=== PATIENT | male | born 1965 | race African-American/Black ===

== ENCOUNTER 2019-09-07 21:09 | Inpatient (IN) | payer OTHER ==
[2019-09-07 21:29] LABS: Arterial Blood Carboxyhemoglob 1.1 % (0-1.5); Blood Gas Oxyhemoglobin 96.5 % (94-97); Blood O2 Saturation 98.1 % (92-98.5)
[2019-09-07] MEDS ORDERED: NA CHLORIDE 0.9% 1,000 ML ONE (21:44)
[2019-09-07] MEDS ORDERED: ACETAMINOPHEN 650MG/RECT SUPP PR ONE (21:44)
[2019-09-07] MEDS ORDERED: NA CHLORIDE 0.9% 500 ML ONE (21:44)
[2019-09-07 21:50] LABS: Absolute Lymphocytes (CBC) 1.3 K/uL (0.7-4.9); Basophils % 0.5 % (0-1.3); Hematocrit 31.3 % (39.6-49.0); MPV 8.3 fL (7.6-11.3)
[2019-09-07 21:54] LABS: Protime INR 1.49
[2019-09-07 21:56] LABS: ALT/SGPT 131 U/L (12-78); AST/SGOT 114 U/L (15-37); Albumin 1.2 g/dL (3.4-5.0); Alkaline Phosphatase 258 U/L (45-117); Amylase 80 U/L (25-115); BUN Blood Urea Nitrogen 21 mg/dL (7-18); Bicarbonate 29 mmol/L (21-32); Bilirubin Direct < 0.1 mg/dL (0-0.2); Bilirubin Total 0.2 mg/dL (0.2-1.0); CKMB Creatine Kinase MB 2.1 ng/mL (0.3-3.6); Creatine Phosphokinase 290 U/L (39-308); Glucose Level 91 mg/dL (74-106); Lipase 94 U/L (73-393); Potassium 3.9 mmol/L (3.5-5.1); Protein, Total 7.7 g/dL (6.4-8.2); Sodium Level 145 mmol/L (136-145); Troponin (Emerg Dept Use Only) < 0.02 ng/mL (0.0-0.045)
[2019-09-07 23:11] LABS: Urine Blood 2+ (NEG); Urine Glucose NEGATIVE (NEG); Urine Protein 2+ (NEG); Urine Specific Gravity 1.025 (1.005-1.030); Urine pH 6.5 (5.0-7.0)
[2019-09-07 23:34] LABS: Calcium Oxalate Crystals- Ur MODERATE (NONE SEEN); Urine Bacteria 20-50 /HPF (NONE SEEN); Urine Culture Reflex Order REFLEXED; Urine Mucus 2+ /HPF (NONE SEEN); Urine Yeast MANY (NONE SEEN)
--- NOTE | 2019-09-07 23:43 | EDPHYS ---
Physician Documentation [facility] Name: Ramsey Gonzalez Age: 54 yrs Sex: Male : 1965 Arrival Date: 09/07/2019 Time: 21:11 Bed 3 Private MD: ED Physician Deven Valdez HPI: 09/06 21:16 This 54 yrs old Black Male presents to ER via EMS with complaints of SEPSIS. [facility] 21:16 Onset: The symptoms/episode began/occurred acutely, 2 hour(s) ago. Duration: The m symptoms are continuous. The patient's shortness of breath has no apparent modifying factors. This is a 54 year old male, shelter patient that presents to the via EMS with tachypnea, febrile. According to EMS patient began to complains of diffuclty breathing from his tracheostomy earlier today, symptoms worsened and EMS was called. . Historical: - Allergies: 09/07 00:00 No Known Allergies; jd3 - Immunization history:: Adult Immunizations unknown. - Social history:: Smoking status: unknown. ROS: 09/06 21:16 Constitutional: Positive for fever. jm Respiratory: Positive for shortness of breath. All other systems are negative. All other systems are negative. Unable to obtain ROS due to altered mental status. Exam: 21:16 Head/Face: atraumatic. Chest/axilla: Normal chest wall appearance and motion. jmm 21:16 Constitutional: The patient appears frail, lethargic. 21:16 Cardiovascular: Rate: tachycardic. 21:16 Respiratory: moderate respiratory distress is noted, Respirations: normal. 21:16 Abdomen/GI: Inspection: abdomen appears normal. 21:16 Musculoskeletal/extremity: no edema. 21:16 Skin: Appearance: Color: normal in color. jmm 21:16 Neuro: Orientation: unable to test, ams. 21:16 Neck: no jvd. jmm 21:16 Chest/axilla: Inspection: normal, Palpation: is normal. 21:16 Back: no deformity. 21:16 Psych: exam not indicated. Vital Signs: 21:24 BP 98 / 79; Pulse 128; Resp 28 S; Temp 102.9(R); Pulse Ox 100% on ETT vent; Weight jd3 45.36 kg (R); 22:26 BP 92 / 78; Pulse 117; Resp 18 S; Pulse Ox 99% on ETT vent; d3 09/07 00:40 BP 95 / 79; Pulse 112; Resp 16 S; Temp 99.0(R); Pulse Ox 98% on ETT vent; jd3 01:19 BP 98 / 87; Pulse 113; Resp 16 S; Pulse Ox 98% on ETT vent; jd3 02:30 BP 98 / 82; Pulse 108; Resp 18 S; Pulse Ox 98% on R/A; jd3 03:56 BP 96 / 80; Pulse 104; Resp 16 S; Pulse Ox 100% on ETT vent; jd3 MDM: 09/06 21:19 Patient medically screened. marichuy 23:39 Data reviewed: vital signs, nurses notes. Counseling: I had a detailed discussion with yamil the patient and/or guardian regarding: the historical points, exam findings, and any diagnostic results supporting the discharge/admit diagnosis, lab results, radiology results, the need for further work-up and treatment in the hospital. ED course: CXR consistent with pneumonia. I discussed the patient with Dr. Mayo whom accepted admission. . 09/06 21:16 Order name: Amylase, Serum; Complete Time: 22: [facility] 09/06 21:16 Order name: Basic Metabolic Panel; Complete Time: 22: [facility] 09/06 21:16 Order name: Blood Culture Adult (2) [facility] 09/06 21:16 Order name: CBC with Diff; Complete Time: 22:17 [facility] 09/06 21:16 Order name: Ckmb; Complete Time: 22:17 [facility] 09/06 21:16 Order name: CPK; Complete Time: 22: [facility] 09/06 21:16 Order name: Lactate; Complete Time: 22:17 [facility] 09/06 21:16 Order name: LFT's; Complete Time: 22:17 [facility] 09/06 21:16 Order name: Lipase; Complete Time: 22:17 [facility] 09/06 21:16 Order name: Procalcitonin; Complete Time: 22:17 [facility] 09/06 21:16 Order name: Protime (+inr); Complete Time: 22:17 [facility] 09/06 21:16 Order name: Ptt, Activated; Complete Time: 22:17 [facility] 09/06 21:16 Order name: Troponin (emerg Dept Use Only); Complete Time: 22:17 d3 09/06 21:16 Order name: Urine Microscopic Only; Complete Time: 23:36 d3 09/06 21:16 Order name: Chest Single View XRAY [facility] 09/06 21:16 Order name: Accucheck; Complete Time: 22:09 d3 09/06 21:20 Order name: ABG; Complete Time: 22:17 rr5 09/06 22:58 Order name: Urine Dipstick--Ancillary (enter results); Complete Time: 23:34 mt 09/06 23:36 Order name: Urine Culture EDAZ 09/07 00:24 Order name: Chest Angio EDAZ 09/07 00:30 Order name: CONS Pharmacy Consult [facility] 09/07 00:30 Order name: CONS Physician Consult [facility] 09/07 00:30 Order name: NPO [facility] 09/07 00:40 Order name: CORONAVIRUS [facility] 09/07 02:05 Order name: Lactate Sepsis 2 HR Follow-up [facility] 09/06 21:16 Order name: Cardiac monitoring; Complete Time: 22:26 [facility] 09/06 21:16 Order name: EKG - Nurse/Tech; Complete Time: 22:26 [facility] 09/06 21:16 Order name: IV Saline Lock - Large Bore; Complete Time: 22:09 [facility] 09/06 21:16 Order name: Labs collected and sent; Complete Time: 22:09 [facility] 09/06 21:16 Order name: O2 Per Protocol; Complete Time: 22:09 [facility] 09/06 21:16 Order name: O2 Sat Monitoring; Complete Time: 22:09 [facility] 09/06 21:16 Order name: Urine Dipstick-Ancillary (obtain specimen); Complete Time: 22:58 jd3 Administered Medications: 21:45 Drug: NS 0.9% (30 ml/kg) 30 ml/kg Route: IV; Rate: bolus; Site: left forearm; jd3 23:45 Follow up: Response: No adverse reaction; IV Status: Completed infusion; IV Intake: jd3 1500ml 21:45 Drug: Tylenol Suppository 650 mg Route: OK; jd3 22:45 Follow up: Response: No adverse reaction jd3 22:08 CANCELLED (Physician Discretion): Tylenol 15 mg/kg PO once; not to exceed 1,000 jd3 milligrams 09/07 00:38 Drug: Zosyn 3.375 grams Route: IVPB; Infused Over: 60 mins; Site: left forearm; jd3 01:38 Follow up: Response: No adverse reaction; IV Status: Completed infusion; IV Intake: jd3 100ml 00:38 Drug: vancoMYCIN 1 grams Route: IVPB; Infused Over: 2 hrs; Site: right forearm; jd3 02:38 Follow up: Response: No adverse reaction; IV Status: Completed infusion; IV Intake: jd3 250ml Disposition: 07:40 Co-signature as Attending Physician, Deven Valdez MD I agree with the assessment and [facility] plan of care. Disposition: 09/07/19 23:42 Hospitalization ordered by Herminio Mayo for Inpatient Admission. Preliminary diagnosis are Sepsis, Pneumonia, Urinary tract infection, site not specified. - Bed requested for Intensive Care Unit. - Status is Inpatient Admission. jd3 - Condition is Stable. - Problem is new. - Symptoms are unchanged. Signatures: Dispatcher [employer] EDAZ Deven Valdez MD MD cha Mickail, Joel, PA PA [facility] Radha Coffman, RN RN lp1 Dave Flores RN RN jd3 Corrections: (The following items were deleted from the chart) 09/06 22:08 21:45 Tylenol 15 mg/kg PO once; not to exceed 1,000 milligrams ordered. [facility] joan 09/07 00:10 09/06 21:16 Musculoskeletal/extremity: ROM: intact in all extremities, [facility] 09/07 00:50 09/06 23:42 Hospitalization Ordered by Herminio Mayo MD for Inpatient Admission. lp1 Preliminary diagnosis is Sepsis; Pneumonia; Urinary tract infection, site not specified. Bed requested for Intensive Care Unit. Status is Inpatient Admission. Condition is Stable. Problem is new. Symptoms are unchanged. [facility] 09/07 05:06 00:50 09/07/2019 23:42 Hospitalization Ordered by Herminio Mayo MD for Inpatient jd3 Admission. Preliminary diagnosis is Sepsis; Pneumonia; Urinary tract infection, site not specified. Bed requested for Intensive Care Unit. Status is Inpatient Admission. Condition is Stable. Problem is new. Symptoms are unchanged. lp1
--- NOTE | 2019-09-07 23:43 | ER ---
Nurse's Notes [facility] Name: Ramsey Gonzalez Age: 54 yrs Sex: Male : 1965 Arrival Date: 09/07/2019 Time: 21:11 Bed 3 Private MD: Diagnosis: Sepsis;Pneumonia;Urinary tract infection, site not specified Presentation: 09/06 21:16 Chief complaint: EMS states: "[facility] called for a pt with shortness of jd3 breath. on arrival the pt was breathing at a rate of 60 breaths per min acting as if he couldn't breath through his tracheostomy. we suctioned and it appeared he was able to move more air. pt was recently discharged with pneumonia. he has a fever and the tree girdler reported giving Tylenol. we initiated an 18 G IV to the left hand and put the pt on the ventilator for respiratory rate control and because his CO2 level was high on the waveform capnography.". Coronavirus screen: Surgical mask placed on patient. Patient moved to private room, placed in contact and droplet isolation with eye protection until further assessment. Patient denies a cough. Patient reports shortness of breath or difficulty breathing. Patient reports a measured and/or subjective temperature greater than 100.4F. Patient denies travel on a cruise ship or to a country the [facility] currently lists as an affected area. Patient denies contact with known and/or suspected case of COVID-19. Prior COVID test results are pending. Ebola Screen: Patient negative for fever greater than or equal to 101.5 degrees Fahrenheit, and additional compatible Ebola Virus Disease symptoms. Initial Sepsis Screen: Does the patient meet any 2 criteria? RR > 20 per min. Temp <36.0*C (96.8*F)) or > 38.3*C (100.9*F). HR > 90 bpm. Yes Does the patient have a suspected source of infection? Yes: Dysuria/Frequency/Urgency/UTI If YES to both, name of provider notified: Deven Valdez MD Risk Assessment: Do you want to hurt yourself or someone else? Patient reports no desire to harm self or others. Onset of symptoms was September 07, 2019. 21:16 Method Of Arrival: EMS: [facility] jd3 21:16 Acuity: TAMARA 1 jd3 Historical: - Allergies: 09/07 00:00 No Known Allergies; jd3 - Immunization history:: Adult Immunizations unknown. - Social history:: Smoking status: unknown. Screenin/23 22:27 Abuse screen: Denies threats or abuse. Nutritional screening: No deficits noted. jd3 Tuberculosis screening: No symptoms or risk factors identified. Fall Risk Secondary diagnosis (15 points) impaired mobility, Gait- Impaired (20 pts.). Total Black Fall Scale indicates Low Risk Score (25-44 pts). Fall prevention measures have been instituted. Side Rails Up X 2 Placed close to Nursing Station Frequent Obs/Assesments occuring. Assessment: 21:26 General: Appears ill, Behavior is inappropriate for age. Pain: Unable to use pain jd3 scale. Does not appear to understand pain scale. Neuro: Level of Consciousness is awake, Oriented to none pt at baseline per [facility]. Cardiovascular: Heart tones S1 S2 present Capillary refill < 3 seconds Patient's skin is warm and dry. Rhythm is sinus tachycardia. Respiratory: Airway is patent via trache Respiratory effort is unlabored, Respiratory pattern is symmetrical, Breath sounds are clear bilaterally. GI: Abdomen is flat, non-distended, PEG tube in place. : 3-way catheter in place to gravity drainage. EENT: No signs and/or symptoms were reported regarding the EENT system. Derm: Skin is intact, is fragile, Skin is dry, Skin is normal, Skin temperature is hot. Musculoskeletal: No signs and/or symptoms reported regarding the musculoskeletal system. 22:27 Reassessment: No changes from previously documented assessment. Patient and/or family jd3 updated on plan of care and expected duration. Pain level reassessed. 22:59 Reassessment: Patient and/or family updated on plan of care and expected duration. Pain jd3 level reassessed. General: General: Appears ill. Neuro: Level of Consciousness is awake, Oriented to none. Cardiovascular: Capillary refill < 3 seconds Patient's skin is warm and dry. Rhythm is sinus tachycardia. Respiratory: Airway is patent via trache Respiratory effort is unlabored, Respiratory pattern is symmetrical. 23:50 Reassessment: No changes from previously documented assessment. Patient and/or family jd3 updated on plan of care and expected duration. Pain level reassessed. 09/07 00:50 Reassessment: No changes from previously documented assessment. Patient and/or family jd3 updated on plan of care and expected duration. Pain level reassessed. 01:18 Cardiovascular: Heart tones S1 S2 present Capillary refill < 3 seconds Patient's skin jd3 is warm and dry. Rhythm is sinus tachycardia. 01:19 Reassessment: No changes from previously documented assessment. Patient and/or family jd3 updated on plan of care and expected duration. Pain level reassessed. Respiratory: Airway is patent via trache Respiratory effort is unlabored, Respiratory pattern is symmetrical, Breath sounds are clear bilaterally. 04:10 Reassessment: report given to Elisa BLANK. jd3 05:00 Reassessment: No changes from previously documented assessment. Patient and/or family jd3 updated on plan of care and expected duration. Pain level reassessed. awaiting admission. Vital Signs: 09/06 21:24 BP 98 / 79; Pulse 128; Resp 28 S; Temp 102.9(R); Pulse Ox 100% on ETT vent; Weight jd3 45.36 kg (R); 22:26 BP 92 / 78; Pulse 117; Resp 18 S; Pulse Ox 99% on ETT vent; jd3 09/07 00:40 BP 95 / 79; Pulse 112; Resp 16 S; Temp 99.0(R); Pulse Ox 98% on ETT vent; jd3 01:19 BP 98 / 87; Pulse 113; Resp 16 S; Pulse Ox 98% on ETT vent; jd3 02:30 BP 98 / 82; Pulse 108; Resp 18 S; Pulse Ox 98% on R/A; jd3 03:56 BP 96 / 80; Pulse 104; Resp 16 S; Pulse Ox 100% on ETT vent; jd3 ED Course: 09/06 21:11 Patient arrived in ED. cf2 21:12 Dave Flores, ABHAY is Primary Nurse. jd3 21:18 Grant Coles PA is PHCP. jmm 21:19 Deven Valdez MD is Attending Physician. jmm 21:24 Triage completed. jd3 21:25 Arm band placed on. jd3 22:01 Chest Single View XRAY In Process Unspecified. EDMS 22:09 Inserted saline lock: 20 gauge in right forearm, using aseptic technique. Blood jd3 collected. Maintain EMS IV. Dressing intact. Good blood return noted. Site clean \\T\\ dry. Gauge \\T\\ site: 18 G L forearm. 22:27 Patient has correct armband on for positive identification. Placed in gown. Bed in low jd3 position. Call light in reach. Side rails up X2. book author on. Pulse ox on. NIBP on. 23:42 Herminio Mayo MD is Hospitalizing Provider. [facility] 09/07 05:06 No provider procedures requiring assistance completed. Patient admitted, IV remains in jd3 place. Administered Medications: 09/06 21:45 Drug: NS 0.9% (30 ml/kg) 30 ml/kg Route: IV; Rate: bolus; Site: left forearm; jd3 23:45 Follow up: Response: No adverse reaction; IV Status: Completed infusion; IV Intake: jd3 1500ml 21:45 Drug: Tylenol Suppository 650 mg Route: NM; jd3 22:45 Follow up: Response: No adverse reaction jd3 22:08 CANCELLED (Physician Discretion): Tylenol 15 mg/kg PO once; not to exceed 1,000 jd3 milligrams 09/07 00:38 Drug: Zosyn 3.375 grams Route: IVPB; Infused Over: 60 mins; Site: left forearm; jd3 01:38 Follow up: Response: No adverse reaction; IV Status: Completed infusion; IV Intake: jd3 100ml 00:38 Drug: vancoMYCIN 1 grams Route: IVPB; Infused Over: 2 hrs; Site: right forearm; jd3 02:38 Follow up: Response: No adverse reaction; IV Status: Completed infusion; IV Intake: jd3 250ml Intake: 09/06 23:45 IV: 1500ml; Total: 1500ml. d3 09/07 01:38 IV: 100ml; Total: 1600ml. jd3 02:38 IV: 250ml; Total: 1850ml. jd3 Outcome: 09/06 23:42 Decision to Hospitalize by Provider. [facility] 09/07 05:06 Patient left the ED. [facility] 05:06 Admitted to ICU accompanied by nurse, accompanied by tech, via stretcher, room ICU 7, [facility] with chart, Report called to Elisa BLANK 05:06 Condition: stable 05:06 Instructed on the need for admit. Signatures: Dispatcher [employer] EDMS Grant Coles PA PA jmm Davies, Jonathon, RN RN jLeobardo Hammer cf2 Corrections: (The following items were deleted from the chart) 09/06 23:00 21:26 General: Appears ill, Behavior is unresponsive. jd3 jd3 23:00 21:26 Neuro: Level of Consciousness is awake, unresponsive, Oriented to none pt at jd3 baseline per [facility]. jd3 09/07 00:39 00:39 Inserted saline lock: 20 gauge in right forearm, using aseptic technique. Blood jd3 collected. Maintain EMS IV. Dressing intact. Good blood return noted. Site clean \\T\\ dry. Gauge \\T\\ site: 18 G L forearm. jd3
[2019-09-08] MEDS ORDERED: PIPER/TAZO/NS 3.375gm 3.375 GM/100 ML BAG ONE (00:20)
[2019-09-08] MEDS ORDERED: NA CHLORIDE 0.9% 250 ML ONE (00:20)
[2019-09-08] MEDS ORDERED: VANCOMYCIN 1 GM/VIAL ONE (00:20)
[2019-09-08] MEDS ORDERED: FENTANYL CITR 100 MCG/2 ML IV PRN (00:23)
[2019-09-08] MEDS ORDERED: ACETAMINOPHEN 500 MG TAB PO PRN (00:23)
[2019-09-08] MEDS ORDERED: propofoL 1,000 MG/100 ML VIAL IV PRN (00:23)
[2019-09-08] MEDS ORDERED: HALOPERIDOL LACT 5 MG/ML INJ IV PRN (00:23)
[2019-09-08] MEDS ORDERED: ONDANSETRON 4 MG/2 ML VIAL IV PRN (00:23)
[2019-09-08] MEDS ORDERED: Meropenem 500 MG VIAL IV SCH (01:00)
[2019-09-08] MEDS: IPRATROPIUM BROM 0.5MG/2.5ML NEB SCH ×4 (01:43→20:18)
[2019-09-08] MEDS: ALBUTEROL 2.5 MG/3 ML NEB SOL NEB SCH ×4 (01:43→20:18)
[2019-09-08] MEDS: NA CHLORIDE 0.9% 1,000 ML IV SCH ×2 (05:29→18:44)
--- NOTE | 2019-09-08 07:33 | P.HP ---
Certification for Inpatient Patient admitted to: Inpatient With expected LOS: >2 Midnights Patient will require the following post-hospital care: None Practitioner: I am a practitioner with admitting privileges, knowledge of patient current condition, hospital course, and medical plan of care. Services: Services provided to patient in accordance with Admission requirements found in Title 42 Section 412.3 of the Code of Federal Regulations Patient History Date of Service: 09/08/19 Reason for admission: Fever; pneumonia History of Present Illness: Patient is a 54-year-old gentleman who has been left debilitated after suffering an ischemic infarct. In April, patient suffered a seizure. He had been out doing cocaine with his friends. They noticed him seizing and then he became unresponsive. They notified age 911, and when EMS arrived they felt patient was having a stroke. He was life flighted to [facility] were he was given tPA. Patient was suffering an ischemic infarct. Patient never recovered after this event and was left with a PEG tube and a trach. [facility] He is currently residing at [facility]. Patient has been on antibiotics over the last week but he started getting worsening symptoms so he was sent into the emergency room for further evaluation. Patient was having difficulty breathing when EMS arrived and he was placed on the ventilator. Patient will be admitted to the in ICU for respiratory failure. Will get pulmonary consultation. Patient has COVID-19 testing pending. Allergies No Known Drug Allergies Allergy (Verified 09/08/19 00:37) Itching/Hives/Rash Home Medications: Acetaminophen with Codeine [Tylenol with Codeine #3 Tablet] 2 tab PO Q4HP PRN 09/08/19 Clopidogrel Bisulfate [Plavix*] 75 mg PO DAILY 09/08/19 Collagenase [Santyl Ointment*] 1 luna TOP DAILY 09/08/19 Famotidine [Pepcid*] 20 mg PO BID 09/08/19 Lactobacillus Acidophilus [Probiotic Acidophilus] 1 cap FT BID 09/08/19 Metoprolol Tartrate [Lopressor] 100 mg PO BID 09/08/19 Scopolamine 1 each TD Q72H 09/08/19 Sodium Chloride Tab [Sodium Chloride*] 2 tab PO TID 09/08/19 Thiamine HCl [Vitamin B-1*] 1 tab PO DAILY 09/08/19 Valproic Acid Syrup [Depakene Syrup*] 10 ml PO TID 09/08/19 - Past Medical/Surgical History Diabetic: No -: Pneumonia -: protein calorie malnutrition -: contracture, unspecified hip -: pain, unspecified -: 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 -: hyperlipidemia -: acute respiratory distress -: essential primary hypertension -: GERD -: epileptic seizure -: disorders of electrolyte and fluid balance -: vitamin deficiency -: Tracheostomy -: PEG tube placement - Family History Father History Unknown: Yes Mother History Unknown: Yes - Social History Smoking Status: Unknown if ever smoked Alcohol use: No CD- Drugs: No Caffeine use: No Place of Residence: [facility] Review of Systems 10-point ROS is otherwise unremarkable Physical Examination - Vital Signs Temperature: 98.5 F Blood Pressure: 103/84 Pulse: 106 Respirations: 16 Pulse Ox (%): 97 - Physical Exam General: Alert, Unresponsive, Other (Patient with tracheostomy and is unresponsive) HEENT: Atraumatic, PERRLA, Mucous membr. moist/pink, EOMI, Sclerae nonicteric Neck: Supple, 2+ carotid pulse no bruit, No LAD, Without JVD or thyroid abnormality Respiratory: Diminished, Rhonchi/gurgles Cardiovascular: Regular rate/rhythm, Normal S1 S2, Systolic murmur Gastrointestinal: Hypoactive, Soft and benign, Non-distended, No tenderness Musculoskeletal: No clubbing, No swelling, No tenderness Neurological: Sensation intact, Cranial nerves 3-12 intact, Abnormal strength Lymphatics: No axilla or inguinal lymphadenopathy - Studies Laboratory Data (last 24 hrs) 09/07/19 21:22: PT 17.4 H, INR 1.49, APTT 34.8 09/07/19 21:22: WBC 18.9 H, Hgb 9.9 L, Hct 31.3 L, Plt Count 300 09/07/19 21:22: Sodium 145, Potassium 3.9, BUN 21 H, Creatinine 0.42 L, Glucose 91, Total Bilirubin 0.2, AST 114 H, ALT 131 H, Alkaline Phosphatase 258 H, Amylase 80, Lipase 94 Assessment & Plan - Problems (Diagnosis) (1) Acute respiratory failure Current Visit: Yes Status: Acute (2) Healthcare associated bacterial pneumonia Current Visit: Yes Status: Acute (3) History of stroke Current Visit: Yes Status: Acute (4) History of tracheostomy Current Visit: Yes Status: Acute (5) Status post insertion of percutaneous endoscopic gastrostomy (PEG) tube Current Visit: Yes Status: Acute (6) History of seizure disorder Current Visit: Yes Status: Acute (7) History of crack cocaine use Current Visit: Yes Status: Acute - Plan 1. Continue with IV antibiotics; on vancomycin along with Levaquin and Zosyn. Merrem was held because of a history of seizures 2. Awaiting sputum and blood culture 3. Repeat chest x-ray 4. Awaiting CT scan of the chest 5. Pulmonary consultation 6. Continue with nebs as needed 7. O2 per protocol 8. Continue with gentle hydration 9. Repeat labs including CBC and renal function in a.m. 10. Resume PEG tube feeding and trach care 11. GI and DVT prophylaxis Discharge Plan: Home Plan to discharge in: Greater than 2 days - Advance Directives Does patient have a Living Will: No Does patient have a Durable POA for Healthcare: No - Code Status/Comfort Care Code Status Assessed: Yes Code Status: Full Code Critical Care: Yes Time Spent Managing PTS Care (In Minutes): 60
[2019-09-08] MEDS ORDERED: Levofloxacin500mg IV 500 MG/100 ML BAG IV SCH (08:00)
[2019-09-08] MEDS ORDERED: ENOXAPARIN 40 MG/0.4 ML SQ SCH (09:00)
[2019-09-08] MEDS ORDERED: LACTOBACILLUS ACIDOPHILUS FT SCH (09:00)
--- NOTE | 2019-09-08 10:00 | RAD REPORT ---
EXAM DESCRIPTION: CT - Chest Angio - 09/08/2019 9:31 am CLINICAL HISTORY: PE vs. pneumonia COMPARISON: Chest Single View dated 09/07/2019 TECHNIQUE: Dynamically enhanced 3 mm thick images of the chest were obtained during administration o f approximately 150mL Isovue 370 IV contrast. Coronal and oblique MIP reconstruction images were gene rated and reviewed. Exam utilizes a protocol to evaluate the pulmonary arterial tree. All CT scans are performed using dose optimization technique as appropriate and may include automated exposure control or mA/KV adjustment according to patient size. FINDINGS: Pulmonary emboli are present at the bifurcation of the left pulmonary artery into the left lower lobe pulmonary segmental arteries. No right-sided pulmonary emboli identified. The aorta as imaged shows no acute or suspicious finding. No pericardial thickening or effusion. Minimal patchy alveolar opacities are present in the left lower lobe possibly areas of alveolar hemor rhage or edema given the pulmonary emboli. Right upper lobe apex and posterior right upper lobe moder ate areas of airspace consolidation. Right lower lobe consolidation is present with mild atelectasis. Patchy right middle lobe consolidations seen. No large pleural effusions. No pneumothorax. No mediastinal or hilar suspicious masses. No chest wall masses or abnormal axillary lymphadenopathy. IMPRESSION: Pulmonary emboli are present in the bifurcation of the left pulmonary artery into the le ft lower lobe pulmonary artery and segmental branches. No other pulmonary emboli seen. Large areas of pneumonia involving the right upper lobe and right lower lobe. Minimal pneumonia connolly es in the right middle lobe. No other significant or suspicious findings.
[2019-09-08] MEDS: VALPROIC ACID 250 MG/5 ML OSYR PO SCH ×3 (10:25→20:31)
[2019-09-08] MEDS: THIAMINE HCL 100 MG TABLET PO SCH (10:26)
[2019-09-08] MEDS: LACTOBACILLUS/ACIDOPHILUS TAB FT SCH ×2 (10:26→20:32)
[2019-09-08] MEDS: SCOPOLAMINE HYDROBROMIDE PATCH TD SCH (10:27)
[2019-09-08] MEDS: SODIUM CHLORIDE 1 GM TAB PO SCH ×3 (10:29→20:32)
[2019-09-08] MEDS: CLOPIDOGREL 75 MG TABLET PO SCH (10:30)
[2019-09-08] MEDS: COLLAGENASE 30 GM OINTMENT TOP SCH (10:35)
[2019-09-08] MEDS: JUVEN PACKET PO SCH ×2 (10:38→20:31)
[2019-09-08] MEDS: JEVITY 1.5 CAL LIQUID 1,000 ML BOT FT SCH (10:38)
[2019-09-08] MEDS: METOPROLOL TAR 50 MG TAB PO SCH ×2 (10:39→21:00)
--- NOTE | 2019-09-08 11:29 | RAD REPORT ---
EXAM DESCRIPTION: RAD - Chest Single View - 09/07/2019 10:01 pm CLINICAL HISTORY: DYSPNEA COMPARISON: No remote image TECHNIQUE: AP portable chest image was obtained 09/07/2019 10:01 pm . FINDINGS: Left hemithorax is normal volume. No dense consolidation seen. There is interstitial and a lveolar opacities in the lower left lung field. No pneumothorax or pleural effusion on the left. Reduced right lung volume. Airspace opacities are present in the right upper lung field with a more d ense opacification in the lower right lung field. Trach tube is in place. Trachea is midline. Patient is significantly rotated with the examination. He art size is normal. No vascular engorgement seen. No measurable pleural effusion and no pneumothorax. No acute bony abnormality seen. No acute aortic findings suspected. IMPRESSION: Pneumonia findings are present throughout much of the volume reduced right hemithorax. Suspected mild pneumonia changes in the left lower lung field.
[2019-09-08] MEDS: VANCOMYCIN/NS 1 gm 1 GM/250 ML BAG IVPB SCH (13:20)
[2019-09-08] MEDS: PIPER/TAZO/NS 3.375gm 3.375 GM/100 ML BAG IVPB SCH ×3 (13:21→23:35)
--- NOTE | 2019-09-08 17:15 | P.CNS ---
Date of Consult: 09/08/19 Chief Complaint: Fever; pneumonia respiratory failure History of Present Illness: Patient is 54-year-old man been debilitated by an ischemic infarct history patient has a trach and a PEG tube [facility] a [facility] has been on antibiotics for over a week is got worse is been short of breath patient admitted with respiratory failure and right lung pneumonia copious secretions Patient was also found to have pulmonary embolism Allergies No Known Drug Allergies Allergy (Verified 09/08/19 00:37) Itching/Hives/Rash Home Medications: Acetaminophen with Codeine [Tylenol with Codeine #3 Tablet] 2 tab PO Q4HP PRN 09/08/19 Clopidogrel Bisulfate [Plavix*] 75 mg PO DAILY 09/08/19 Collagenase [Santyl Ointment*] 1 luna TOP DAILY 09/08/19 Famotidine [Pepcid*] 20 mg PO BID 09/08/19 Lactobacillus Acidophilus [Probiotic Acidophilus] 1 cap FT BID 09/08/19 Metoprolol Tartrate [Lopressor] 100 mg PO BID 09/08/19 Scopolamine 1 each TD Q72H 09/08/19 Sodium Chloride Tab [Sodium Chloride*] 2 tab PO TID 09/08/19 Thiamine HCl [Vitamin B-1*] 1 tab PO DAILY 09/08/19 Valproic Acid Syrup [Depakene Syrup*] 10 ml PO TID 09/08/19 - Past Medical/Surgical History Diabetic: No -: Pneumonia -: protein calorie malnutrition -: contracture, unspecified hip -: pain, unspecified -: residential use of anticoagulants -: hyperlipidemia -: acute respiratory distress -: essential primary hypertension -: GERD -: epileptic seizure -: disorders of electrolyte and fluid balance -: vitamin deficiency -: Tracheostomy -: PEG tube placement - Family History Father History Unknown: Yes Mother History Unknown: Yes - Social History Smoking Status: Unknown if ever smoked Alcohol use: No CD- Drugs: No Caffeine use: No Place of Residence: [facility] Review of Systems is unable to be obtained Physical Examination Temp Pulse Resp BP Pulse Ox 97.4 F 106 H 24 H 100/70 100 09/08/19 08:00 09/08/19 10:39 09/08/19 10:00 09/08/19 10:39 09/08/19 10:00 General: Unresponsive Respiratory: Rhonchi/gurgles (Extensive rhonchi and crackles on the right side) Cardiovascular: Other (Extremities contracted) Gastrointestinal: Normal bowel sounds, Soft and benign Laboratory Data (last 24 hrs) 09/07/19 21:22: PT 17.4 H, INR 1.49, APTT 34.8 09/07/19 21:22: WBC 18.9 H, Hgb 9.9 L, Hct 31.3 L, Plt Count 300 09/07/19 21:22: Sodium 145, Potassium 3.9, BUN 21 H, Creatinine 0.42 L, Glucose 91, Total Bilirubin 0.2, AST 114 H, ALT 131 H, Alkaline Phosphatase 258 H, Amylase 80, Lipase 94 - Problems (1) Respiratory failure Current Visit: Yes Status: Acute Plan: Patient is 54 years of age with a history of trach and a PEG debilitated from his ischemic stroke admitted with respiratory failure secondary to right lung pneumonia cultures are pending labs read white count elevated microcytic anemia patient is clearly septic has copious secretions continue vancomycin Zosyn Dc Levaquin patient is on 50% oxygen (2) Pulmonary embolus Current Visit: Yes Status: Acute Plan: Patient also has pulmonary embolus is high risk and lifelong anticoagulation continue with Lovenox vital signs stable Qualifiers: Pulmonary embolism type: unspecified
[2019-09-08] MEDS: ENOXAPARIN 60 MG/0.6 ML SQ SCH (20:32)
[2019-09-09] MEDS: VANCOMYCIN/NS 1 gm 1 GM/250 ML BAG IVPB SCH ×2 (00:37→13:08)
[2019-09-09] MEDS: IPRATROPIUM BROM 0.5MG/2.5ML NEB SCH ×4 (00:52→20:35)
[2019-09-09] MEDS: ALBUTEROL 2.5 MG/3 ML NEB SOL NEB SCH ×4 (00:52→20:35)
[2019-09-09] MEDS: PIPER/TAZO/NS 3.375gm 3.375 GM/100 ML BAG IVPB SCH ×3 (05:12→17:22)
[2019-09-09 06:12] LABS: MPV 8.8 fL (7.6-11.3)
[2019-09-09 06:32] LABS: Hematocrit 25.8 % (39.6-49.0); RBC Red Blood Cell Count 3.49 M/uL (4.33-5.43)
[2019-09-09] MEDS: NA CHLORIDE 0.9% 1,000 ML IV SCH ×3 (07:00→17:25)
--- NOTE | 2019-09-09 08:56 | EKG ---
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
[2019-09-09] MEDS: COLLAGENASE 30 GM OINTMENT TOP SCH (09:00)
[2019-09-09] MEDS: JUVEN PACKET PO SCH ×2 (09:00→22:10)
[2019-09-09] MEDS: METOPROLOL TAR 50 MG TAB PO SCH ×2 (09:00→22:10)
[2019-09-09] MEDS: JEVITY 1.5 CAL LIQUID 1,000 ML BOT FT SCH (09:00)
--- NOTE | 2019-09-09 09:03 | RAD REPORT ---
EXAM DESCRIPTION: Jason Single View09/09/2019 7:10 am CLINICAL HISTORY: Respiratory failure COMPARISON: September 07 FINDINGS: Alveolar opacities right lung without significant change. Left lung appears clear of acute infiltrate. Heart is borderline enlarged. Tracheostomy tube remains in place IMPRESSION: No significant change in a moderate right pneumonia
[2019-09-09] MEDS: VALPROIC ACID 250 MG/5 ML OSYR PO SCH ×3 (09:16→22:09)
[2019-09-09] MEDS: SODIUM CHLORIDE 1 GM TAB PO SCH ×4 (09:17→22:13)
[2019-09-09] MEDS: THIAMINE HCL 100 MG TABLET PO SCH (09:17)
[2019-09-09] MEDS: ENOXAPARIN 60 MG/0.6 ML SQ SCH ×2 (09:17→22:11)
[2019-09-09] MEDS: CLOPIDOGREL 75 MG TABLET PO SCH (09:18)
[2019-09-09] MEDS: LACTOBACILLUS/ACIDOPHILUS TAB FT SCH ×2 (09:18→22:10)
--- NOTE | 2019-09-09 13:23 | P.PN ---
Subjective Date of Service: 09/10/19 Chief Complaint: Fever; pneumonia respiratory failure Subjective: No new changes, Other (Nonverbal) Review of Systems is unable to be obtained Physical Examination - Vital Signs Temperature: 98.6 F Blood Pressure: 107/80 Pulse: 106 Respirations: 25 Pulse Ox (%): 100 - Physical Exam General: Cachectic, Confused, Other (Altered mental status) HEENT: Atraumatic, Normocephalic Neck: Supple Respiratory: Diminished, Crackles/rales Cardiovascular: Regular rate/rhythm, Normal S1 S2 Capillary refill: <2 Seconds Gastrointestinal: Soft and benign, W/out hepatosplenomegaly Musculoskeletal: No swelling, Contractures Integumentary: Pressure ulcer Neurological: Abnormal speech, Abnormal strength Lymphatics: No axilla or inguinal lymphadenopathy Rectal: Deferred Assessment & Plan - Problems (Diagnosis) (1) Acute respiratory failure Current Visit: Yes Status: Acute (2) History of crack cocaine use Current Visit: Yes Status: Chronic (3) History of seizure disorder Current Visit: Yes Status: Chronic (4) History of stroke Current Visit: Yes Status: Chronic (5) History of tracheostomy Current Visit: Yes Status: Chronic (6) Pulmonary embolus Current Visit: Yes Status: Acute Qualifiers: Pulmonary embolism type: unspecified (7) Respiratory failure Current Visit: Yes Status: Acute (8) Status post insertion of percutaneous endoscopic gastrostomy (PEG) tube Current Visit: Yes Status: Chronic Plan: Continue with IV antibiotics; on vancomycin along with Levaquin and Zosyn. Merrem was held because of a history of seizures Continue antibiotics for now Cultures pending tests so far Appreciate help from pulmonology Will get a repeat x-ray Continue with nebs as needed Patient is on ventilator support Will try to wean off Continue with gentle hydration Repeat labs including CBC and renal function in a.m. Resume PEG tube feeding and trach care Has multiple pressure ulcers Wound care GI and DVT prophylaxis Discharge Plan: [facility] Plan to discharge in: Greater than 2 days Time Spent Managing Pts Care (In Minutes): 45
[2019-09-09] MEDS ORDERED: JEVITY 1.5 CAL LIQUID 1,000 ML BOT RTH SCH ×2 (16:00)
[2019-09-09 18:11] LABS: ALT/SGPT 80 U/L (12-78); AST/SGOT 67 U/L (15-37); Albumin 1.1 g/dL (3.4-5.0); Alkaline Phosphatase 151 U/L (45-117); BUN Blood Urea Nitrogen 11 mg/dL (7-18); Bicarbonate 26 mmol/L (21-32); Bilirubin Total 0.3 mg/dL (0.2-1.0); Glucose Level 81 mg/dL (74-106); Protein, Total 6.8 g/dL (6.4-8.2); Sodium Level 151 mmol/L (136-145)
[2019-09-09 18:12] LABS: Potassium 2.9 mmol/L (3.5-5.1)
[2019-09-09] MEDS ORDERED: POTASSIUM 25 MEQ EFFERV TAB PO ONE (19:00)
[2019-09-10] MEDS: VANCOMYCIN/NS 1 gm 1 GM/250 ML BAG IVPB SCH ×2 (00:45→12:31)
[2019-09-10] MEDS: PIPER/TAZO/NS 3.375gm 3.375 GM/100 ML BAG IVPB SCH (01:50)
[2019-09-10] MEDS: ALBUTEROL 2.5 MG/3 ML NEB SOL NEB SCH ×4 (02:00→19:50)
[2019-09-10] MEDS: IPRATROPIUM BROM 0.5MG/2.5ML NEB SCH ×4 (02:00→19:50)
[2019-09-10] MEDS: NA CHLORIDE 0.9% 1,000 ML IV SCH (03:00)
[2019-09-10 05:33] LABS: Basophils % 0.4 % (0-1.3); Hematocrit 25.7 % (39.6-49.0); Lymphocytes % 10.7 % (15.3-44.8); MPV 8.3 fL (7.6-11.3); RBC Red Blood Cell Count 3.53 M/uL (4.33-5.43)
[2019-09-10 05:53] LABS: BUN Blood Urea Nitrogen 10 mg/dL (7-18); Bicarbonate 24 mmol/L (21-32); Glucose Level 92 mg/dL (74-106); Potassium 3.9 mmol/L (3.5-5.1); Sodium Level 152 mmol/L (136-145)
[2019-09-10] MEDS: JEVITY 1.5 CAL LIQUID 1,000 ML BOT RTH SCH (06:24)
[2019-09-10] MEDS ORDERED: CEFTAZIDIME 1 GM in NA CHLORIDE 0.9% 50 ML IV SCH (09:00)
[2019-09-10] MEDS ORDERED: CEFTAZIDIME 1 GM VIAL IV SCH (09:00)
[2019-09-10] MEDS: SODIUM CHLORIDE 1 GM TAB PO SCH (09:00)
[2019-09-10] MEDS: METOPROLOL TAR 50 MG TAB PO SCH ×2 (09:06→21:17)
[2019-09-10] MEDS: LACTOBACILLUS/ACIDOPHILUS TAB FT SCH ×2 (09:06→21:17)
[2019-09-10] MEDS: RIVAROXABAN 15 MG TABLET PO SCH ×2 (09:06→21:17)
[2019-09-10] MEDS: THIAMINE HCL 100 MG TABLET PO SCH (09:06)
[2019-09-10] MEDS: VALPROIC ACID 250 MG/5 ML OSYR PO SCH ×3 (09:06→21:16)
[2019-09-10] MEDS: CLOPIDOGREL 75 MG TABLET PO SCH (09:06)
[2019-09-10] MEDS: JUVEN PACKET PO SCH ×2 (09:09→21:17)
--- NOTE | 2019-09-10 09:30 | P.PN ---
Subjective Date of Service: 09/10/19 Chief Complaint: Fever; pneumonia respiratory failure Subjective: No new changes Review of Systems is unable to be obtained Physical Examination - Vital Signs Temperature: 98.6 F Blood Pressure: 107/80 Pulse: 106 Respirations: 25 Pulse Ox (%): 100 - Physical Exam General: In no apparent distress, Cachectic, Unresponsive HEENT: Atraumatic, Normocephalic Neck: Supple Respiratory: Diminished, Crackles/rales Cardiovascular: No edema, Regular rate/rhythm, Normal S1 S2 Capillary refill: <2 Seconds Gastrointestinal: Soft and benign, W/out hepatosplenomegaly Musculoskeletal: No swelling, No warmth, Contractures Integumentary: No rashes, Skin breakdown, Pressure ulcer Neurological: Abnormal speech, Abnormal strength Lymphatics: No axilla or inguinal lymphadenopathy Rectal: Deferred - Studies Laboratory Tests 09/07/19 09/07/19 09/07/19 21:21 21:22 21:22 WBC 18.9 H RBC 4.20 L Hgb 9.9 L Hct 31.3 L MCV 74.5 L MCH 23.6 L MCHC 31.7 L RDW 19.9 H Plt Count 300 MPV 8.3 Neutrophils % 88.8 H Lymphocytes % 7.0 L Monocytes % 3.6 Eosinophils % 0.1 Basophils % 0.5 Absolute Neutrophils 16.8 H Absolute Lymphocytes 1.3 Absolute Monocytes 0.7 Absolute Eosinophils 0.0 Absolute Basophils 0.1 PT INR APTT pH 7.50 H pCO2 37.9 pO2 112.0 H HCO3 29.2 H Base Excess 5.8 Oxyhemoglobin 96.5 ABG O2 Sat (Measured) 98.1 ABG Carboxyhemoglobin 1.1 ABG Methemoglobin 0.5 Other Total Hgb 9.9 L Inspired O2 50.0 Sodium 145 Potassium 3.9 Chloride 109 H Carbon Dioxide 29 BUN 21 H Creatinine 0.42 L Estimated GFR > 90 Glucose 91 Lactic Acid Calcium 8.5 Total Bilirubin 0.2 Direct Bilirubin < 0.1 AST 114 H ALT 131 H Alkaline Phosphatase 258 H Creatine Kinase 290 CK-MB (CK-2) 2.1 Rapid Troponin I < 0.02 Serum Total Protein 7.7 Albumin 1.2 L Globulin 6.5 H Albumin/Globulin Ratio 0.2 L Amylase 80 Lipase 94 Procalcitonin Urine pH Ur Specific [place] Glucose (UA)(Auto) Urine Ketones Urine Blood Urine Nitrite Ur Leukocyte Esterase Urine RBC Urine WBC Ur Squamous Epith Cells Calcium Oxalate Crystal Urine Bacteria Urine Mucus Urine Yeast Urine Yeast (Budding) Urine Culture Reflexed Urine Total Protein 09/07/19 09/07/19 09/07/19 21:22 21:22 21:22 WBC RBC Hgb Hct MCV MCH MCHC RDW Plt Count MPV Neutrophils % Lymphocytes % Monocytes % Eosinophils % Basophils % Absolute Neutrophils Absolute Lymphocytes Absolute Monocytes Absolute Eosinophils Absolute Basophils PT 17.4 H INR 1.49 APTT 34.8 pH pCO2 pO2 HCO3 Base Excess Oxyhemoglobin ABG O2 Sat (Measured) ABG Carboxyhemoglobin ABG Methemoglobin Other Total Hgb Inspired O2 Sodium Potassium Chloride Carbon Dioxide BUN Creatinine Estimated GFR Glucose Lactic Acid 2.6 H Calcium Total Bilirubin Direct Bilirubin AST ALT Alkaline Phosphatase Creatine Kinase CK-MB (CK-2) Rapid Troponin I Serum Total Protein Albumin Globulin Albumin/Globulin Ratio Amylase Lipase Procalcitonin 0.54 H Urine pH Ur Specific [place] Glucose (UA)(Auto) Urine Ketones Urine Blood Urine Nitrite Ur Leukocyte Esterase Urine RBC Urine WBC Ur Squamous Epith Cells Calcium Oxalate Crystal Urine Bacteria Urine Mucus Urine Yeast Urine Yeast (Budding) Urine Culture Reflexed Urine Total Protein 09/07/19 09/07/19 22:55 22:58 WBC RBC Hgb Hct MCV MCH MCHC RDW Plt Count MPV Neutrophils % Lymphocytes % Monocytes % Eosinophils % Basophils % Absolute Neutrophils Absolute Lymphocytes Absolute Monocytes Absolute Eosinophils Absolute Basophils PT INR APTT pH pCO2 pO2 HCO3 Base Excess Oxyhemoglobin ABG O2 Sat (Measured) ABG Carboxyhemoglobin ABG Methemoglobin Other Total Hgb Inspired O2 Sodium Potassium Chloride Carbon Dioxide BUN Creatinine Estimated GFR Glucose Lactic Acid Calcium Total Bilirubin Direct Bilirubin AST ALT Alkaline Phosphatase Creatine Kinase CK-MB (CK-2) Rapid Troponin I Serum Total Protein Albumin Globulin Albumin/Globulin Ratio Amylase Lipase Procalcitonin Urine pH 6.5 Ur Specific [place] 1.025 Glucose (UA)(Auto) Negative Urine Ketones Trace Urine Blood 2+ H Urine Nitrite Negative Ur Leukocyte Esterase Trace H Urine RBC 10-20 H Urine WBC 5-10 H Ur Squamous Epith Cells 5-10 H Calcium Oxalate Crystal Moderate H Urine Bacteria 20-50 H Urine Mucus 2+ Urine Yeast Many Urine Yeast (Budding) Present H Urine Culture Reflexed Reflexed Urine Total Protein 2+ H Microbiology Data (last 24 hrs): 09/07/19 22:55 Clean Catch Urine [place] Count - Final >100,000 CFU/ML. 09/07/19 22:55 Clean Catch Urine - Final MIXED KODY. Assessment & Plan - Problems (Diagnosis) (1) Acute respiratory failure Current Visit: Yes Status: Acute (2) History of crack cocaine use Current Visit: Yes Status: Chronic (3) History of seizure disorder Current Visit: Yes Status: Chronic (4) History of stroke Current Visit: Yes Status: Chronic (5) History of tracheostomy Current Visit: Yes Status: Chronic (6) Pulmonary embolus Current Visit: Yes Status: Acute Qualifiers: Pulmonary embolism type: unspecified (7) Respiratory failure Current Visit: Yes Status: Acute (8) Status post insertion of percutaneous endoscopic gastrostomy (PEG) tube Current Visit: Yes Status: Chronic Plan: Continue with IV antibiotics; on vancomycin along with Levaquin and Zosyn. Merrem was held because of a history of seizures Continue antibiotics for now Cultures pending tests so far Appreciate help from pulmonology Will get a repeat x-ray Continue with nebs as needed Patient is on ventilator support Will try to wean off Continue with gentle hydration Repeat labs including CBC and renal function in a.m. Resume PEG tube feeding and trach care Has multiple pressure ulcers Wound care GI and DVT prophylaxis 09/10/2019 Hypernatremia noted will stop IV fluids And on water flushes monitor neuro vital signs Hypokalemia resolved Patient still on went Appreciate help from pulmonology Trying to wean with trach collar Sputum cultures positive for Acinetobacter Will change Zosyn to ceftazidime Monitor closely under telemetry Discuss with case management Patient may need placement to SNF Discharge Plan: [facility] Plan to discharge in: 72 Hours Time Spent Managing Pts Care (In Minutes): 45
--- NOTE | 2019-09-10 11:12 | RAD REPORT ---
EXAM DESCRIPTION: RAD - Chest Single View - 09/10/2019 6:45 am CLINICAL HISTORY: Respiratory failure COMPARISON: Portable September 08 TECHNIQUE: AP portable chest image was obtained 09/10/2019 6:45 am . FINDINGS: Trach tube again noted. No new tube or line. Interstitial and alveolar opacities in the right lung field have improved slightly. Patient has promi nent interstitial markings throughout both lung tay not clearly different. No new or progressive l eft lung field finding. Trachea remains midline. Heart and vasculature are normal. No measurable pleural effusion and no pneumothorax. No acute bony abnormality seen. No acute aortic findings suspected. IMPRESSION: Partial clearing of right lung field opacification.
--- NOTE | 2019-09-10 12:35 | P.PN ---
Subjective Date of Service: 09/10/19 Chief Complaint: Fever; pneumonia respiratory failure Subjective: Improving (Patient's condition is stable chest x-ray has improved still has copious secretions will plan to wean him off from the ventilator) Review of Systems is unable to be obtained Physical Examination - Vital Signs Temperature: 98.6 F Blood Pressure: 107/80 Pulse: 106 Respirations: 25 Pulse Ox (%): 100 - Physical Exam General: Unresponsive Respiratory: Clear to auscultation bilaterally Cardiovascular: No edema, Normal S1 S2 Gastrointestinal: Normal bowel sounds - Studies Microbiology Data (last 24 hrs): 09/07/19 22:55 Clean Catch Urine [place] Count - Final >100,000 CFU/ML. 09/07/19 22:55 Clean Catch Urine - Final MIXED KODY. Assessment & Plan - Problems (Diagnosis) (1) Respiratory failure Current Visit: Yes Status: Acute Plan: Patient is clinically improving although years copious secretions plan to wean him off from the ventilator change to trach collar Acinetobacter was isolated change antibiotic to ceftazidime continue with vancomycin patient's white count is declining chemistries reviewed hypernatremic (2) Pulmonary embolus Current Visit: Yes Status: Acute Plan: Patient is on Xarelto Qualifiers: Pulmonary embolism type: unspecified (3) Hypernatremia Current Visit: Yes Status: Acute Plan: Increase PEG tube water flushes
[2019-09-10] MEDS: COLLAGENASE 30 GM OINTMENT TOP SCH (17:05)
[2019-09-10 18:03] LABS: ALT/SGPT 61 U/L (12-78); AST/SGOT 46 U/L (15-37); Albumin 1.1 g/dL (3.4-5.0); Alkaline Phosphatase 128 U/L (45-117); BUN Blood Urea Nitrogen 8 mg/dL (7-18); Bicarbonate 27 mmol/L (21-32); Bilirubin Total 0.2 mg/dL (0.2-1.0); Glucose Level 101 mg/dL (74-106); Potassium 3.1 mmol/L (3.5-5.1); Protein, Total 6.7 g/dL (6.4-8.2); Sodium Level 149 mmol/L (136-145)
[2019-09-10] MEDS: CEFTAZIDIME 1 GM in NA CHLORIDE 0.9% 50 ML IV SCH (19:25)
[2019-09-11] MEDS: ALBUTEROL 2.5 MG/3 ML NEB SOL NEB SCH ×2 (02:30→07:54)
[2019-09-11] MEDS: IPRATROPIUM BROM 0.5MG/2.5ML NEB SCH ×4 (02:30→20:05)
[2019-09-11] MEDS: CEFTAZIDIME 1 GM in NA CHLORIDE 0.9% 50 ML IV SCH ×3 (03:40→20:23)
[2019-09-11 06:32] LABS: Sodium Level 148 mmol/L (136-145)
[2019-09-11 06:33] LABS: Absolute Lymphocytes (CBC) 2.3 K/uL (0.7-4.9); Basophils % 0.5 % (0-1.3); Lymphocytes % 12.9 % (15.3-44.8); MPV 8.6 fL (7.6-11.3); RBC Red Blood Cell Count 3.55 M/uL (4.33-5.43)
[2019-09-11 06:34] LABS: BUN Blood Urea Nitrogen 9 mg/dL (7-18); Bicarbonate 27 mmol/L (21-32); Glucose Level 88 mg/dL (74-106)
[2019-09-11 06:36] VITALS: BMI 18.3
--- NOTE | 2019-09-11 08:25 | RAD REPORT ---
EXAM DESCRIPTION: RAD - Chest Single View - 09/11/2019 6:52 am CLINICAL HISTORY: Respiratory failure Chest pain. COMPARISON: Chest Single View dated 09/10/2019; Chest Single View dated 09/09/2019; Chest Single View dated 09/07/2019 FINDINGS: Portable technique limits examination quality. Significant worsening in right lung aeration is noted since comparative study. The heart is moderatel y enlarged. Tip of the tracheostomy tube is above the kory. IMPRESSION: Moderate worsening in right lung aeration since comparative study.
[2019-09-11] MEDS: CLOPIDOGREL 75 MG TABLET PO SCH (08:46)
[2019-09-11] MEDS: RIVAROXABAN 15 MG TABLET PO SCH ×2 (08:46→20:31)
[2019-09-11] MEDS: METOPROLOL TAR 50 MG TAB PO SCH ×2 (08:46→20:43)
[2019-09-11] MEDS: THIAMINE HCL 100 MG TABLET PO SCH (08:46)
[2019-09-11] MEDS: VALPROIC ACID 250 MG/5 ML OSYR PO SCH ×3 (08:46→20:30)
[2019-09-11] MEDS: LACTOBACILLUS/ACIDOPHILUS TAB FT SCH ×2 (08:46→20:31)
[2019-09-11] MEDS: JUVEN PACKET PO SCH ×2 (08:47→20:31)
[2019-09-11] MEDS: SCOPOLAMINE HYDROBROMIDE PATCH TD SCH (08:48)
[2019-09-11] MEDS: COLLAGENASE 30 GM OINTMENT TOP SCH (09:00)
[2019-09-11] MEDS ORDERED: ALBUTEROL 2.5 MG/3 ML NEB SOL NEB PRN (12:20)
--- NOTE | 2019-09-11 12:21 | P.PN ---
Subjective Date of Service: 09/11/19 Chief Complaint: Fever; pneumonia respiratory failure Subjective: Improving (Patient is tolerating a trach collar now hemodynamically stable still has some secretions) Review of Systems is unable to be obtained Physical Examination - Vital Signs Temperature: 98.1 F Blood Pressure: 107/78 Pulse: 101 Respirations: 25 Pulse Ox (%): 95 - Physical Exam General: Unresponsive Respiratory: Clear to auscultation bilaterally, Diminished Cardiovascular: No edema, Regular rate/rhythm - Studies Microbiology Data (last 24 hrs): 09/07/19 22:55 Clean Catch Urine [place] Count - Final >100,000 CFU/ML. 09/07/19 22:55 Clean Catch Urine - Final MIXED KODY. Assessment & Plan - Problems (Diagnosis) (1) Respiratory failure Current Visit: Yes Status: Acute Plan: Patient admitted with respiratory failure secondary to ammonia chest x-ray does look slightly worse white count is declining hypernatremia improving continue with IV ceftazidime for now stable to be transferred to the floor reduce dose of metoprolol to 50 b.i.d. continue with water flushes (2) Pulmonary embolus Current Visit: Yes Status: Acute Plan: Patient is on Xarelto no change Qualifiers: Pulmonary embolism type: unspecified (3) Hypernatremia Current Visit: Yes Status: Acute Plan: Improving
--- NOTE | 2019-09-11 14:22 | P.PN ---
Subjective Date of Service: 09/11/19 Chief Complaint: Fever; pneumonia respiratory failure Subjective: No new changes, Improving Physical Examination - Vital Signs Temperature: 98.1 F Blood Pressure: 107/78 Pulse: 101 Respirations: 25 Pulse Ox (%): 95 - Physical Exam General: Alert, In no apparent distress, Cachectic HEENT: Atraumatic, Normocephalic Neck: Supple, 2+ carotid pulse no bruit Respiratory: Clear to auscultation bilaterally Cardiovascular: Normal pulses, Regular rate/rhythm Capillary refill: <2 Seconds Gastrointestinal: Soft and benign, W/out hepatosplenomegaly Musculoskeletal: Contractures, Erythema Integumentary: Skin breakdown, Pressure ulcer Neurological: Abnormal speech, Abnormal strength Lymphatics: No axilla or inguinal lymphadenopathy Assessment & Plan - Problems (Diagnosis) (1) Acute respiratory failure Current Visit: Yes Status: Acute (2) History of crack cocaine use Current Visit: Yes Status: Chronic (3) History of seizure disorder Current Visit: Yes Status: Chronic (4) History of stroke Current Visit: Yes Status: Chronic (5) History of tracheostomy Current Visit: Yes Status: Chronic (6) Pulmonary embolus Current Visit: Yes Status: Acute Qualifiers: Pulmonary embolism type: unspecified (7) Respiratory failure Current Visit: Yes Status: Acute (8) Status post insertion of percutaneous endoscopic gastrostomy (PEG) tube Current Visit: Yes Status: Chronic Plan: Continue with IV antibiotics; on vancomycin along with Levaquin and Zosyn. Merrem was held because of a history of seizures Continue antibiotics for now Cultures pending tests so far Appreciate help from pulmonology Will get a repeat x-ray Continue with nebs as needed Patient is on ventilator support Will try to wean off Continue with gentle hydration Repeat labs including CBC and renal function in a.m. Resume PEG tube feeding and trach [facility] Has multiple pressure ulcers Wound care GI and DVT prophylaxis 09/10/2019 Hypernatremia noted will stop IV fluids And on water flushes monitor neuro vital signs Hypokalemia resolved Patient still on went Appreciate help from pulmonology Trying to wean with trach collar Sputum cultures positive for Acinetobacter Will change Zosyn to ceftazidime Monitor closely under telemetry Discuss with case management Patient may need placement to SNF 09/11/2019 Transfer out of ICU Appreciate help from pulmonology Patient is on trach collar Monitor closely Wound care appreciate Electrolytes monitored and replaced accordingly Discuss with case management Need placement Time Spent Managing Pts Care (In Minutes): 35
[2019-09-11 18:21] LABS: ALT/SGPT 59 U/L (12-78); AST/SGOT 52 U/L (15-37); Albumin 1.1 g/dL (3.4-5.0); Alkaline Phosphatase 115 U/L (45-117); BUN Blood Urea Nitrogen 8 mg/dL (7-18); Bicarbonate 27 mmol/L (21-32); Bilirubin Total 0.2 mg/dL (0.2-1.0); Glucose Level 88 mg/dL (74-106); Potassium 4.1 mmol/L (3.5-5.1); Protein, Total 6.9 g/dL (6.4-8.2); Sodium Level 142 mmol/L (136-145)
[2019-09-11] MEDS ORDERED: NA CHLORIDE 0.9% 250 ML ONE (20:37)
[2019-09-12] MEDS: IPRATROPIUM BROM 0.5MG/2.5ML NEB SCH ×4 (00:50→19:00)
[2019-09-12] MEDS: CEFTAZIDIME 1 GM in NA CHLORIDE 0.9% 50 ML IV SCH ×3 (03:07→20:07)
[2019-09-12] MEDS: JEVITY 1.5 CAL LIQUID 1,000 ML BOT RTH SCH (04:05)
[2019-09-12 05:16] LABS: BUN Blood Urea Nitrogen 11 mg/dL (7-18); Bicarbonate 28 mmol/L (21-32); Glucose Level 121 mg/dL (74-106); Magnesium 1.7 mg/dL (1.8-2.4); Phosphorus 3.2 mg/dL (2.5-4.9); Potassium 3.7 mmol/L (3.5-5.1); Sodium Level 143 mmol/L (136-145)
[2019-09-12] MEDS ORDERED: KCL 20 MEQ/100 mL IVPB 20 MEQ/100 ML BAG IV SCH (07:00)
[2019-09-12] MEDS: THIAMINE HCL 100 MG TABLET PO SCH (08:12)
[2019-09-12] MEDS: LACTOBACILLUS/ACIDOPHILUS TAB FT SCH ×2 (08:12→22:15)
[2019-09-12] MEDS: VALPROIC ACID 250 MG/5 ML OSYR PO SCH ×3 (08:13→22:15)
[2019-09-12] MEDS: JUVEN PACKET PO SCH ×2 (08:13→22:16)
[2019-09-12] MEDS: CLOPIDOGREL 75 MG TABLET PO SCH (08:13)
[2019-09-12] MEDS: RIVAROXABAN 15 MG TABLET PO SCH ×2 (08:17→22:15)
[2019-09-12] MEDS: METOPROLOL TAR 50 MG TAB PO SCH ×2 (08:17→22:15)
[2019-09-12] MEDS ORDERED: MAGNESIUM SULFATE 1 gm IVPB 1 GM/100 ML BAG IV ONE (09:00)
[2019-09-12] MEDS: COLLAGENASE 30 GM OINTMENT TOP SCH (10:13)
--- NOTE | 2019-09-12 13:50 | P.PN ---
Subjective Date of Service: 09/12/19 Chief Complaint: Fever; pneumonia respiratory failure Subjective: No new changes, Improving Review of Systems is unable to be obtained Physical Examination - Vital Signs Temperature: 98.2 F Blood Pressure: 101/67 Pulse: 110 Respirations: 28 Pulse Ox (%): 100 - Physical Exam General: In no apparent distress, Cachectic HEENT: Atraumatic, Normocephalic Neck: Supple, 2+ carotid pulse no bruit Respiratory: Diminished, Crackles/rales Cardiovascular: Regular rate/rhythm, Normal S1 S2 Capillary refill: <2 Seconds Gastrointestinal: Soft and benign, W/out hepatosplenomegaly Musculoskeletal: Contractures, Erythema Integumentary: Skin breakdown, Pressure ulcer Neurological: Abnormal speech, Abnormal strength Lymphatics: No axilla or inguinal lymphadenopathy Rectal: Deferred Assessment & Plan - Problems (Diagnosis) (1) Acute respiratory failure Current Visit: Yes Status: Acute (2) History of crack cocaine use Current Visit: Yes Status: Chronic (3) History of seizure disorder Current Visit: Yes Status: Chronic (4) History of stroke Current Visit: Yes Status: Chronic (5) History of tracheostomy Current Visit: Yes Status: Chronic (6) Pulmonary embolus Current Visit: Yes Status: Acute Qualifiers: Pulmonary embolism type: unspecified (7) Respiratory failure Current Visit: Yes Status: Acute (8) Status post insertion of percutaneous endoscopic gastrostomy (PEG) tube Current Visit: Yes Status: Chronic Plan: Continue with IV antibiotics; on vancomycin along with Levaquin and Zosyn. Merrem was held because of a history of seizures Continue antibiotics for now Cultures pending tests so far Appreciate help from pulmonology Will get a repeat x-ray Continue with nebs as needed Patient is on ventilator support Will try to wean off Continue with gentle hydration Repeat labs including CBC and renal function in a.m. Resume PEG tube feeding and trach care Has multiple pressure ulcers Wound care GI and DVT prophylaxis 09/12/2019 Appreciate help from pulmonology Patient is on trach collar Trach care Sputum culture positive for Acinetobacter Continue ceftazidime Monitor closely Hypernatremia better Wound care appreciated Electrolytes monitored and replace if needed Discuss with case management Need placement Time Spent Managing Pts Care (In Minutes): 38
[2019-09-12] MEDS: MEDIHONEY 44 ML TOPICAL TUBE TOP SCH (20:07)
[2019-09-12] MEDS ORDERED: NA CHLORIDE 0.9% 250 ML ONE (20:14)
[2019-09-13] MEDS: IPRATROPIUM BROM 0.5MG/2.5ML NEB SCH ×4 (00:35→20:15)
[2019-09-13] MEDS: JEVITY 1.5 CAL LIQUID 1,000 ML BOT RTH SCH ×2 (02:24→22:30)
[2019-09-13] MEDS: CEFTAZIDIME 1 GM in NA CHLORIDE 0.9% 50 ML IV SCH ×3 (03:04→20:05)
[2019-09-13 06:15] LABS: BUN Blood Urea Nitrogen 12 mg/dL (7-18); Bicarbonate 27 mmol/L (21-32); Glucose Level 93 mg/dL (74-106); Potassium 4.5 mmol/L (3.5-5.1); Sodium Level 141 mmol/L (136-145)
[2019-09-13] MEDS: JUVEN PACKET PO SCH ×2 (09:00→20:12)
[2019-09-13] MEDS: METOPROLOL TAR 50 MG TAB PO SCH ×2 (09:00→20:56)
[2019-09-13] MEDS: COLLAGENASE 30 GM OINTMENT TOP SCH (09:00)
[2019-09-13] MEDS: THIAMINE HCL 100 MG TABLET PO SCH (09:45)
[2019-09-13] MEDS: VALPROIC ACID 250 MG/5 ML OSYR PO SCH ×3 (09:45→20:05)
[2019-09-13] MEDS: LACTOBACILLUS/ACIDOPHILUS TAB FT SCH ×2 (09:45→20:05)
[2019-09-13] MEDS: CLOPIDOGREL 75 MG TABLET PO SCH (09:45)
[2019-09-13] MEDS: RIVAROXABAN 15 MG TABLET PO SCH ×2 (09:46→20:11)
[2019-09-13] MEDS: MEDIHONEY 44 ML TOPICAL TUBE TOP SCH (09:47)
--- NOTE | 2019-09-13 12:38 | P.PN ---
Subjective Date of Service: 09/13/19 Chief Complaint: Fever; pneumonia respiratory failure Patient's condition is stable the transfer to the intermediate once he has IV antibiotics ordered no change oxygenation satisfactory patient is on trach collar been setup for IV ceftazidime also recommend doxycycline through the PEG tube is high risk for Mr VANCE infection Physical Examination - Vital Signs Temperature: 98.9 F Blood Pressure: 99/68 Pulse: 117 Respirations: 40 Pulse Ox (%): 98 - Studies Microbiology Data (last 24 hrs): 09/07/19 22:06 Blood - Blood Aerobic Blood Culture - Final No growth in 5 days. 09/07/19 22:06 Blood - Blood Anaerobic Blood Culture - Final No growth in 5 days. 09/07/19 21:22 Blood - Blood Aerobic Blood Culture - Final No growth in 5 days. 09/07/19 21:22 Blood - Blood Anaerobic Blood Culture - Final No growth in 5 days. Assessment & Plan - Problems (Diagnosis) (1) Respiratory failure Current Visit: Yes Status: Acute Plan: Patient admitted with respiratory failure secondary to ammonia chest x-ray does look slightly worse white count is declining hypernatremia improving continue with IV ceftazidime for now stable to be transferred to the floor reduce dose of metoprolol to 50 b.i.d. continue with water flushes chemistries reviewed (2) Pulmonary embolus Current Visit: Yes Status: Acute Plan: Patient is on Xarelto no change no change Qualifiers: Pulmonary embolism type: unspecified (3) Hypernatremia Current Visit: Yes Status: Resolved Plan: Improving
--- NOTE | 2019-09-13 13:02 | P.PN ---
Subjective Date of Service: 09/13/19 Chief Complaint: Fever; pneumonia respiratory failure Subjective: No new changes, Improving Review of Systems is unable to be obtained Physical Examination - Vital Signs Temperature: 98.9 F Blood Pressure: 99/68 Pulse: 117 Respirations: 40 Pulse Ox (%): 98 - Physical Exam General: Alert, In no apparent distress, Cachectic HEENT: Atraumatic, Normocephalic Neck: Supple Respiratory: Clear to auscultation bilaterally, Normal air movement, Other (On Trach Collar ) Cardiovascular: No edema, Regular rate/rhythm, Normal S1 S2 Capillary refill: <2 Seconds Gastrointestinal: Soft and benign, W/out hepatosplenomegaly Musculoskeletal: No clubbing, Contractures Integumentary: Skin breakdown, Pressure ulcer Neurological: Abnormal speech, Abnormal strength Lymphatics: No axilla or inguinal lymphadenopathy Rectal: Deferred - Studies Laboratory Last Values WBC 18.9 K/uL (4.3-10.9) H 09/07/19 21: RBC 4.20 M/uL (4.33-5.43) L 09/07/19 21:22 Hgb 9.9 g/dL (13.6-17.9) L 09/07/19 21:22 Hct 31.3 % (39.6-49.0) L 09/07/19 21:22 MCV 74.5 fL (80-100) L 09/07/19 21:22 MCH 23.6 pg (27.0-35.0) L 09/07/19 21:22 MCHC 31.7 g/dL (32.0-36.0) L 09/07/19 21:22 RDW 19.9 % (12.1-15.2) H 09/07/19 21:22 Plt Count 300 K/uL (152-406) 09/07/19 21:22 MPV 8.3 fL (7.6-11.3) 09/07/19 21:22 Neutrophils % 88.8 % (41.7-73.7) H 09/07/19 21:22 Lymphocytes % 7.0 % (15.3-44.8) L 09/07/19 21: Monocytes % 3.6 % (3.3-12.3) 09/07/19 21: Eosinophils % 0.1 % (0-4.4) 09/07/19 21: Basophils % 0.5 % (0-1.3) 09/07/19 21: Absolute Neutrophils 16.8 K/uL (1.8-8.0) H 09/07/19 21:22 Absolute Lymphocytes 1.3 K/uL (0.7-4.9) 09/07/19 21: Absolute Monocytes 0.7 K/uL (0.1-1.3) 09/07/19 21: Absolute Eosinophils 0.0 K/uL (0-0.5) 09/07/19 21: Absolute Basophils 0.1 K/uL (0-0.5) 09/07/19 21: PT 17.4 SECONDS (9.5-12.5) H 09/07/19 21: INR 1.49 09/07/19 21: APTT 34.8 SECONDS (24.3-36.9) 09/07/19 21: pH 7.50 (7.35-7.45) H 09/07/19 21:21 pCO2 37.9 mmHG (35-45) 09/07/19 21:21 pO2 112.0 mmHG (75-100) H 09/07/19 21:21 HCO3 29.2 mmol/L (22-28) H 09/07/19 21: Base Excess 5.8 mmol/L 09/07/19 21:21 Oxyhemoglobin 96.5 % (94-97) 09/07/19 21: ABG O2 Sat (Measured) 98.1 % (92-98.5) 09/07/19 21: ABG Carboxyhemoglobin 1.1 % (0-1.5) 09/07/19 21:21 ABG Methemoglobin 0.5 % (0-1.5) 09/07/19 21:21 Other Total Hgb 9.9 g/dl (12-18) L 09/07/19 21: Inspired O2 50.0 % 09/07/19 21:21 Sodium 145 mmol/L (136-145) 09/07/19 21:22 Potassium 3.9 mmol/L (3.5-5.1) 09/07/19 21: Chloride 109 mmol/L (98-107) H 09/07/19 21:22 Carbon Dioxide 29 mmol/L (21-32) 09/07/19 21:22 BUN 21 mg/dL (7-18) H 09/07/19 21:22 Creatinine 0.42 mg/dL (0.55-1.3) L 09/07/19 21:22 Estimated GFR > 90 mL/min (=/>90) 09/07/19 21:22 Glucose 91 mg/dL (74-106) 09/07/19 21:22 Lactic Acid 2.6 mmol/L (0.4-2.0) H 09/07/19 21:22 Calcium 8.5 mg/dL (8.5-10.1) 09/07/19 21:22 Total Bilirubin 0.2 mg/dL (0.2-1.0) 09/07/19 21:22 Direct Bilirubin < 0.1 mg/dL (0-0.2) 09/07/19 21:22 AST 114 U/L (15-37) H 09/07/19 21:22 ALT 131 U/L (12-78) H 09/07/19 21:22 Alkaline Phosphatase 258 U/L (45-117) H 09/07/19 21:22 Creatine Kinase 290 U/L (39-308) 09/07/19 21:22 CK-MB (CK-2) 2.1 ng/mL (0.3-3.6) 09/07/19 21:22 Rapid Troponin I < 0.02 ng/mL (0.0-0.045) 09/07/19 21:22 Serum Total Protein 7.7 g/dL (6.4-8.2) 09/07/19 21:22 Albumin 1.2 g/dL (3.4-5.0) L 09/07/19 21:22 Globulin 6.5 g/dL (2.3-3.5) H 09/07/19 21:22 Albumin/Globulin Ratio 0.2 (1.1-1.8) L 09/07/19 21:22 Amylase 80 U/L (25-115) 09/07/19 21:22 Lipase 94 U/L (73-393) 09/07/19 21:22 Procalcitonin 0.54 ng/mL (<0.50) H 09/07/19 21:22 Urine pH 6.5 (5.0-7.0) 09/07/19 22:58 Ur Specific [place] 1.025 (1.005-1.030) 09/07/19 22:58 Glucose (UA)(Auto) Negative (NEG) 09/07/19 22:58 Urine Ketones Trace (NEG) 09/07/19 22:58 Urine Blood 2+ (NEG) H 09/07/19 22:58 Urine Nitrite Negative (NEG) 09/07/19 22:58 Ur Leukocyte Esterase Trace (NEG) H 09/07/19 22:58 Urine RBC 10-20 /HPF (NONE SEEN) H 09/07/19 22:55 Urine WBC 5-10 /HPF (<5) H 09/07/19 22:55 Ur Squamous Epith Cells 5-10 /HPF (NONE SEEN) H 09/07/19 22:55 Calcium Oxalate Crystal Moderate (NONE SEEN) H 09/07/19 22:55 Urine Bacteria 20-50 /HPF (NONE SEEN) H 09/07/19 22:55 Urine Mucus 2+ /HPF (NONE SEEN) 09/07/19 22:55 Urine Yeast Many (NONE SEEN) 09/07/19 22:55 Urine Yeast (Budding) Present (NONE SEEN) H 09/07/19 22:55 Urine Culture Reflexed Reflexed 09/07/19 22:55 Urine Total Protein 2+ (NEG) H 09/07/19 22:58 Microbiology Data (last 24 hrs): 09/07/19 22:06 Blood - Blood Aerobic Blood Culture - Final No growth in 5 days. 09/07/19 22:06 Blood - Blood Anaerobic Blood Culture - Final No growth in 5 days. 09/07/19 21:22 Blood - Blood Aerobic Blood Culture - Final No growth in 5 days. 09/07/19 21:22 Blood - Blood Anaerobic Blood Culture - Final No growth in 5 days. Assessment & Plan - Problems (Diagnosis) (1) Acute respiratory failure Current Visit: Yes Status: Acute (2) History of crack cocaine use Current Visit: Yes Status: Chronic (3) History of seizure disorder Current Visit: Yes Status: Chronic (4) History of stroke Current Visit: Yes Status: Chronic (5) History of tracheostomy Current Visit: Yes Status: Chronic (6) Pulmonary embolus Current Visit: Yes Status: Acute Qualifiers: Pulmonary embolism type: unspecified (7) Respiratory failure Current Visit: Yes Status: Acute (8) Status post insertion of percutaneous endoscopic gastrostomy (PEG) tube Current Visit: Yes Status: Chronic Plan: Continue with IV antibiotics; Ceftazidime along with doxycycline Appreciate help from pulmonary Patient is on trach collar Trach care Sputum culture positive for Acinetobacter Hypernatremia better Has multiple pressure ulcers Wound care appreciated Electrolytes monitored and replace if needed Discuss with case management Need placement PEG tube feeding and trach care GI and DVT prophylaxis Time Spent Managing Pts Care (In Minutes): 35
--- NOTE | 2019-09-13 16:21 | P.CNS ---
Date of Consult: 09/13/19 Subjective: Patient is a 54-year-old male [facility] resident who presents with difficulty breathing/ respiratory failure requiring ventilation. Patient found to have pneumonia and leukocytosis which have been consulted for. Patient examined at bedside. Had PICC line placed today for IV antibiotics. The patient is poor historian, medical history obtained from medical records Past medical/surgical history: Pneumonia, protein calorie malnutrition, and contractures, hyperlipidemia, hypertension, GERD, seizures, tracheostomy, peg tube placement Social history: [facility] resident Allergies: NKDA Temp Pulse Resp BP Pulse Ox 98.9 F 117 H 40 H 99/68 98 09/13/19 15:43 09/13/19 15:43 09/13/19 15:43 09/13/19 15:43 09/13/19 15:43 Labs: Na 141, K 4.5, BUN 12, Creat 0.28, Albumin 1.1, WBC 17.9, Hgb 8.2, Hct 26, PLT 317 Chest x-ray 09/06: EXAM DESCRIPTION: RAD - Chest Single View - 09/07/2019 10:01 pm CLINICAL HISTORY: DYSPNEA COMPARISON: No remote image TECHNIQUE: AP portable chest image was obtained 09/07/2019 10:01 pm . FINDINGS: Left hemithorax is normal volume. No dense consolidation seen. There is interstitial and alveolar opacities in the lower left lung field. No pneumothorax or pleural effusion on the left. Reduced right lung volume. Airspace opacities are present in the right upper lung field with a more dense opacification in the lower right lung field. Trach tube is in place. Trachea is midline. Patient is significantly rotated with the examination. Heart size is normal. No vascular engorgement seen. No measurable pleural effusion and no pneumothorax. No acute bony abnormality seen. No acute aortic findings suspected. IMPRESSION: Pneumonia findings are present throughout much of the volume reduced right hemithorax. Suspected mild pneumonia changes in the left lower lung field. Chest xray 09/10: EXAM DESCRIPTION: RAD - Chest Single View - 09/11/2019 6:52 am CLINICAL HISTORY: Respiratory failure Chest pain. COMPARISON: Chest Single View dated 09/10/2019; Chest Single View dated 08/16; Chest Single View dated 09/07/2019 FINDINGS: Portable technique limits examination quality. Significant worsening in right lung aeration is noted since comparative study. The heart is moderately enlarged. Tip of the tracheostomy tube is above the kory. IMPRESSION: Moderate worsening in right lung aeration since comparative study. 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 Valentino
--- NOTE | 2019-09-13 16:23 | RAD REPORT ---
EXAM DESCRIPTION: RAD - Chest Single View - 09/13/2019 4:16 pm CLINICAL HISTORY: Device placement PICC line placement . IMPRESSION: PICC line with its tip in the mid superior vena cava
[2019-09-13] MEDS: DOXYCYCLINE 100 MG CAP PO SCH (20:05)
[2019-09-14] MEDS: IPRATROPIUM BROM 0.5MG/2.5ML NEB SCH ×4 (01:00→19:30)
[2019-09-14] MEDS: CEFTAZIDIME 1 GM in NA CHLORIDE 0.9% 50 ML IV SCH ×3 (02:59→20:22)
[2019-09-14 05:30] LABS: Absolute Lymphocytes (CBC) 2.4 K/uL (0.7-4.9); Basophils % 0.7 % (0-1.3); Hematocrit 26.3 % (39.6-49.0); Lymphocytes % 15.7 % (15.3-44.8); MPV 8.2 fL (7.6-11.3); RBC Red Blood Cell Count 3.62 M/uL (4.33-5.43)
[2019-09-14 05:38] LABS: BUN Blood Urea Nitrogen 11 mg/dL (7-18); Bicarbonate 29 mmol/L (21-32); Glucose Level 115 mg/dL (74-106); Potassium 4.4 mmol/L (3.5-5.1); Sodium Level 138 mmol/L (136-145)
[2019-09-14] MEDS: COLLAGENASE 30 GM OINTMENT TOP SCH (09:00)
[2019-09-14] MEDS: JUVEN PACKET PO SCH ×2 (09:00→20:24)
[2019-09-14] MEDS: SCOPOLAMINE HYDROBROMIDE PATCH TD SCH (09:24)
[2019-09-14] MEDS: METOPROLOL TAR 50 MG TAB PO SCH ×2 (09:25→20:24)
[2019-09-14] MEDS: CLOPIDOGREL 75 MG TABLET PO SCH (09:25)
[2019-09-14] MEDS: DOXYCYCLINE 100 MG CAP PO SCH ×2 (09:25→20:23)
[2019-09-14] MEDS: THIAMINE HCL 100 MG TABLET PO SCH (09:25)
[2019-09-14] MEDS: LACTOBACILLUS/ACIDOPHILUS TAB FT SCH ×2 (09:25→20:23)
[2019-09-14] MEDS: VALPROIC ACID 250 MG/5 ML OSYR PO SCH ×3 (09:25→20:23)
[2019-09-14] MEDS: RIVAROXABAN 15 MG TABLET PO SCH ×2 (09:25→20:23)
[2019-09-14] MEDS: MEDIHONEY 44 ML TOPICAL TUBE TOP SCH (09:26)
--- NOTE | 2019-09-14 10:22 | P.PN ---
Subjective Date of Service: 09/14/19 Chief Complaint: Fever; pneumonia respiratory failure Subjective: No new changes Review of Systems is unable to be obtained Physical Examination - Vital Signs Temperature: 98.4 F Blood Pressure: 127/76 Pulse: 117 Respirations: 18 Pulse Ox (%): 96 - Physical Exam General: Alert, Cachectic HEENT: Atraumatic, Normocephalic Neck: Supple Respiratory: Clear to auscultation bilaterally Cardiovascular: Normal pulses, Regular rate/rhythm Capillary refill: <2 Seconds Gastrointestinal: Soft and benign, W/out hepatosplenomegaly Musculoskeletal: Contractures Integumentary: Skin breakdown, Pressure ulcer Neurological: Abnormal speech, Abnormal strength Lymphatics: No axilla or inguinal lymphadenopathy Rectal: Deferred - Studies Laboratory Last Values WBC 18.9 K/uL (4.3-10.9) H 09/07/19 21:22 RBC 4.20 M/uL (4.33-5.43) L 09/07/19 21:22 Hgb 9.9 g/dL (13.6-17.9) L 09/07/19 21:22 Hct 31.3 % (39.6-49.0) L 09/07/19 21:22 MCV 74.5 fL (80-100) L 09/07/19 21:22 MCH 23.6 pg (27.0-35.0) L 09/07/19 21:22 MCHC 31.7 g/dL (32.0-36.0) L 09/07/19 21:22 RDW 19.9 % (12.1-15.2) H 09/07/19 21:22 Plt Count 300 K/uL (152-406) 09/07/19 21:22 MPV 8.3 fL (7.6-11.3) 09/07/19 21:22 Neutrophils % 88.8 % (41.7-73.7) H 09/07/19 21:22 Lymphocytes % 7.0 % (15.3-44.8) L 09/07/19 21:22 Monocytes % 3.6 % (3.3-12.3) 09/07/19 21:22 Eosinophils % 0.1 % (0-4.4) 09/07/19 21:22 Basophils % 0.5 % (0-1.3) 09/07/19 21:22 Absolute Neutrophils 16.8 K/uL (1.8-8.0) H 09/07/19 21:22 Absolute Lymphocytes 1.3 K/uL (0.7-4.9) 09/07/19 21: Absolute Monocytes 0.7 K/uL (0.1-1.3) 09/07/19 21: Absolute Eosinophils 0.0 K/uL (0-0.5) 09/07/19 21: Absolute Basophils 0.1 K/uL (0-0.5) 09/07/19 21:22 PT 17.4 SECONDS (9.5-12.5) H 09/07/19 21: INR 1.49 09/07/19 21: APTT 34.8 SECONDS (24.3-36.9) 09/07/19 21:22 pH 7.50 (7.35-7.45) H 09/07/19 21:21 pCO2 37.9 mmHG (35-45) 09/07/19 21: pO2 112.0 mmHG (75-100) H 09/07/19 21:21 HCO3 29.2 mmol/L (22-28) H 09/07/19 21:21 Base Excess 5.8 mmol/L 09/07/19 21:21 Oxyhemoglobin 96.5 % (94-97) 09/07/19 21: ABG O2 Sat (Measured) 98.1 % (92-98.5) 09/07/19 21: ABG Carboxyhemoglobin 1.1 % (0-1.5) 09/07/19 21:21 ABG Methemoglobin 0.5 % (0-1.5) 09/07/19 21:21 Other Total Hgb 9.9 g/dl (12-18) L 09/07/19 21:21 Inspired O2 50.0 % 09/07/19 21:21 Sodium 145 mmol/L (136-145) 09/07/19 21: Potassium 3.9 mmol/L (3.5-5.1) 09/07/19 21: Chloride 109 mmol/L (98-107) H 09/07/19 21:22 Carbon Dioxide 29 mmol/L (21-32) 09/07/19 21:22 BUN 21 mg/dL (7-18) H 09/07/19 21:22 Creatinine 0.42 mg/dL (0.55-1.3) L 09/07/19 21:22 Estimated GFR > 90 mL/min (=/>90) 09/07/19 21:22 Glucose 91 mg/dL (74-106) 09/07/19 21:22 Lactic Acid 2.6 mmol/L (0.4-2.0) H 09/07/19 21:22 Calcium 8.5 mg/dL (8.5-10.1) 09/07/19 21:22 Total Bilirubin 0.2 mg/dL (0.2-1.0) 09/07/19 21:22 Direct Bilirubin < 0.1 mg/dL (0-0.2) 09/07/19 21:22 AST 114 U/L (15-37) H 09/07/19 21:22 ALT 131 U/L (12-78) H 09/07/19 21:22 Alkaline Phosphatase 258 U/L (45-117) H 09/07/19 21:22 Creatine Kinase 290 U/L (39-308) 09/07/19 21:22 CK-MB (CK-2) 2.1 ng/mL (0.3-3.6) 09/07/19 21:22 Rapid Troponin I < 0.02 ng/mL (0.0-0.045) 09/07/19 21:22 Serum Total Protein 7.7 g/dL (6.4-8.2) 09/07/19 21:22 Albumin 1.2 g/dL (3.4-5.0) L 09/07/19 21:22 Globulin 6.5 g/dL (2.3-3.5) H 09/07/19 21:22 Albumin/Globulin Ratio 0.2 (1.1-1.8) L 09/07/19 21:22 Amylase 80 U/L (25-115) 09/07/19 21: Lipase 94 U/L (73-393) 09/07/19 21:22 Procalcitonin 0.54 ng/mL (<0.50) H 09/07/19 21:22 Urine pH 6.5 (5.0-7.0) 09/07/19 22:58 Ur Specific [place] 1.025 (1.005-1.030) 09/07/19 22:58 Glucose (UA)(Auto) Negative (NEG) 09/07/19 22:58 Urine Ketones Trace (NEG) 09/07/19 22:58 Urine Blood 2+ (NEG) H 09/07/19 22:58 Urine Nitrite Negative (NEG) 09/07/19 22:58 Ur Leukocyte Esterase Trace (NEG) H 09/07/19 22:58 Urine RBC 10-20 /HPF (NONE SEEN) H 09/07/19 22:55 Urine WBC 5-10 /HPF (<5) H 09/07/19 22:55 Ur Squamous Epith Cells 5-10 /HPF (NONE SEEN) H 09/07/19 22:55 Calcium Oxalate Crystal Moderate (NONE SEEN) H 09/07/19 22:55 Urine Bacteria 20-50 /HPF (NONE SEEN) H 09/07/19 22:55 Urine Mucus 2+ /HPF (NONE SEEN) 09/07/19 22:55 Urine Yeast Many (NONE SEEN) 09/07/19 22:55 Urine Yeast (Budding) Present (NONE SEEN) H 09/07/19 22:55 Urine Culture Reflexed Reflexed 09/07/19 22:55 Urine Total Protein 2+ (NEG) H 09/07/19 22:58 Assessment & Plan - Problems (Diagnosis) (1) Acute respiratory failure Current Visit: Yes Status: Acute (2) History of crack cocaine use Current Visit: Yes Status: Chronic (3) History of seizure disorder Current Visit: Yes Status: Chronic (4) History of stroke Current Visit: Yes Status: Chronic (5) History of tracheostomy Current Visit: Yes Status: Chronic (6) Pulmonary embolus Current Visit: Yes Status: Acute Qualifiers: Pulmonary embolism type: unspecified (7) Respiratory failure Current Visit: Yes Status: Acute (8) Status post insertion of percutaneous endoscopic gastrostomy (PEG) tube Current Visit: Yes Status: Chronic Physician Review Additional Text: Acute hypoxic respiratory failure Pneumonia with sputum culture positive for Acinetobacter CVA with residual defects and contractures History of crack cocaine use History of tracheostomy History of PEG placement Multiple decubitus ulcers Hypernatremia Anemia of chronic disease Plan Continue with antibiotics; Ceftazidime along with doxycycline Status post PICC line placement Appreciate help from pulmonary Patient is on trach collar Trach care Sputum culture positive for Acinetobacter Hypernatremia better Has multiple pressure ulcers Wound care appreciated Electrolytes monitored and replace if needed Discuss with case management Need placement PEG tube feeding and trach care GI and DVT prophylaxis Disposition: [facility] Time Spent Managing Pts Care (In Minutes): 35
[2019-09-14] MEDS ORDERED: NA CHLORIDE 0.9% 1,000 ML IV ONE (17:10)
[2019-09-15] MEDS: IPRATROPIUM BROM 0.5MG/2.5ML NEB SCH ×4 (01:00→19:45)
[2019-09-15] MEDS: CEFTAZIDIME 1 GM in NA CHLORIDE 0.9% 50 ML IV SCH ×3 (03:28→20:32)
[2019-09-15 08:07] LABS: Absolute Lymphocytes (CBC) 2.1 K/uL (0.7-4.9); Basophils % 0.7 % (0-1.3); Hematocrit 24.9 % (39.6-49.0); Lymphocytes % 14.1 % (15.3-44.8); RBC Red Blood Cell Count 3.47 M/uL (4.33-5.43)
[2019-09-15] MEDS ORDERED: NA CHLORIDE 0.9% 500 ML IV ONE ×2 (08:10→08:48)
[2019-09-15] MEDS ORDERED: NA CHLORIDE 0.9% 500 ML ONE (08:19)
[2019-09-15 08:24] LABS: ALT/SGPT 34 U/L (12-78); AST/SGOT 33 U/L (15-37); Albumin 1.1 g/dL (3.4-5.0); Alkaline Phosphatase 106 U/L (45-117); BUN Blood Urea Nitrogen 11 mg/dL (7-18); Bicarbonate 30 mmol/L (21-32); Bilirubin Total 0.1 mg/dL (0.2-1.0); Glucose Level 113 mg/dL (74-106); Potassium 4.2 mmol/L (3.5-5.1); Sodium Level 137 mmol/L (136-145)
[2019-09-15] MEDS: LACTOBACILLUS/ACIDOPHILUS TAB FT SCH ×2 (09:00→20:33)
[2019-09-15] MEDS: THIAMINE HCL 100 MG TABLET PO SCH (09:00)
[2019-09-15] MEDS: RIVAROXABAN 15 MG TABLET PO SCH ×2 (09:00→20:32)
[2019-09-15] MEDS: METOPROLOL TAR 50 MG TAB PO SCH ×2 (09:01→20:32)
[2019-09-15] MEDS: CLOPIDOGREL 75 MG TABLET PO SCH (09:01)
[2019-09-15] MEDS: VALPROIC ACID 250 MG/5 ML OSYR PO SCH ×3 (09:01→20:32)
[2019-09-15] MEDS: DOXYCYCLINE 100 MG CAP PO SCH ×2 (09:01→20:33)
[2019-09-15] MEDS: MEDIHONEY 44 ML TOPICAL TUBE TOP SCH (09:02)
[2019-09-15] MEDS: COLLAGENASE 30 GM OINTMENT TOP SCH (09:02)
[2019-09-15] MEDS: JUVEN PACKET PO SCH ×2 (09:05→20:33)
--- NOTE | 2019-09-15 10:06 | PN ---
Date of Progress Note: 09/15/2019 Patient seen and examined. Chart reviewed and case discussed with RN and Dr. Hazel. Patient seems to be very tachycardic this morning. EKG was done. Stat labs ordered including lactate, which was normal. EKG showed normal sinus rhythm. IV fluid bolus given. Medications: List reviewed. Physical Examination: Vital Signs: T-max 100.3, heart rate is 131, blood pressure 102/72, respirations 20, O2 of 97% on room air. General: Awake, alert, nonverbal. Patient frail, cachectic, ill-appearing. CV: S1, S2. Sinus tachycardia. Peripheral pulses present. Respiratory: Moving air well bilaterally. No wheezing or stridor. Gastrointestinal: Abdomen is soft, nondistended. Positive bowel sounds. PEG tube in place. Extremities: The patient has no clubbing, cyanosis, or edema. Neuro: Patient has multiple contractures. Neck: Trach collar in place. Laboratory Data: WBC 14.8, H and H 8 and 24.9, platelets 294, neutrophils 74.4%. Sodium 137, potassium 4.2, chloride 104, CO2 of 30, BUN 11, creatinine 0.32, glucose 113, lactate 1.9, calcium 8.3. Blood cultures, no growth to date. Sputum cultures, acinetobacter. Assessment: A 54-year-old male with: 1. Acute respiratory failure with acute on chronic respiratory failure with hypoxia. Patient is on blow-by with trach with hypoxia. Continue with blow-by. 2. Sinus tachycardia, may be related to his acute infection. EKG shows sinus tachycardia. Patient does have low-grade fever, 100.3. Lactate is normal; however, we will give bolus 0.5 L normal saline and monitor closely. 3. History of cerebrovascular accident with residual deficits and contractures. 4. Pneumonia with sputum cultures positive for acinetobacter. We will continue doxycycline and intravenous antibiotics. Patient currently on ceftazidime. We will continue for a total of 2 weeks. 5. History of crack cocaine use. 6. Status post tracheostomy. 7. History of percutaneous endoscopic gastrostomy placement. We will continue feeds. 8. Multiple decubitus ulcers. No acute infectious ulcer at this time. We will continue with offloading, air mattress, and [facility]. Wound healing center following the patient. 9. Hypernatremia, improved. 10. Anemia of chronic disease. We will continue to monitor blood levels and transfuse as needed. Plan: Continue with trach care. GI, DVT prophylaxis addressed. Return to [facility] on IV antibiotics once accepted. Patient is on Xarelto. /FERNANDO Voice ID: [id number] Report ID: [id number] [place]
[2019-09-15 11:01] LABS: Anisocytosis 1+; Blood Morphology Comment NOTED (NOT SEEN); Platelet Estimate ADEQ; Urine White Blood Cell Casts OK
--- NOTE | 2019-09-15 16:42 | P.PN ---
Subjective Date of Service: 09/15/19 Chief Complaint: Fever; pneumonia respiratory failure Patient's condition is stable his unresponsive white count is slowly declining patient has a PICC line scheduled to be transferred to [facility] no response from the [facility] at is a little tachycardic Review of Systems is unable to be obtained Physical Examination - Vital Signs Temperature: 100.2 F Blood Pressure: 98/63 Pulse: 118 Respirations: 20 Pulse Ox (%): 98 - Physical Exam General: Unresponsive Respiratory: Expiratory wheezes Cardiovascular: Regular rate/rhythm, Normal S1 S2 Integumentary: Other (Patient's extremities are contracted ears multiple decubitus ulcers) Assessment & Plan - Problems (Diagnosis) (1) Respiratory failure Current Visit: Yes Status: Acute Plan: Patient admitted with respiratory failure secondary to ammonia he is to be discharged home on IV antibiotics he does have a PICC line patient's white count is declining mildly anemic he also on tube feeds he is to go home on doxycycline he is at risk for Mr SA infection (2) Pulmonary embolus Current Visit: Yes Status: Acute Plan: Patient is on Xarelto no change no change no change lifelong anticoagulation recommend stopping his Plavix he will be high risk for bleeding Qualifiers: Pulmonary embolism type: unspecified (3) Hypernatremia Current Visit: Yes Status: Resolved Plan: Improving Physician Review Additional Text: Acute hypoxic respiratory failure Pneumonia with sputum culture positive for Acinetobacter CVA with residual defects and contractures History of crack cocaine use History of tracheostomy History of PEG placement Multiple decubitus ulcers Hypernatremia Anemia of chronic disease Plan Continue with antibiotics; Ceftazidime along with doxycycline Status post PICC line placement Appreciate help from pulmonary Patient is on trach collar Trach care Sputum culture positive for Acinetobacter Hypernatremia better Has multiple pressure ulcers Wound care appreciated Electrolytes monitored and replace if needed Discuss with case management Need placement PEG tube feeding and trach care GI and DVT prophylaxis Disposition: Awaiting placement to [facility]
[2019-09-15] MEDS: JEVITY 1.5 CAL LIQUID 1,000 ML BOT RTH SCH (17:50)
[2019-09-16] MEDS: IPRATROPIUM BROM 0.5MG/2.5ML NEB SCH ×3 (01:28→12:33)
[2019-09-16] MEDS: CEFTAZIDIME 1 GM in NA CHLORIDE 0.9% 50 ML IV SCH ×2 (04:48→12:31)
[2019-09-16 04:56] LABS: Absolute Lymphocytes (CBC) 2.1 K/uL (0.7-4.9); Basophils % 0.5 % (0-1.3); Hematocrit 25.5 % (39.6-49.0); MPV 8.3 fL (7.6-11.3); RBC Red Blood Cell Count 3.49 M/uL (4.33-5.43)
[2019-09-16 05:00] LABS: BUN Blood Urea Nitrogen 14 mg/dL (7-18); Bicarbonate 27 mmol/L (21-32); Glucose Level 121 mg/dL (74-106); Sodium Level 138 mmol/L (136-145)
[2019-09-16] MEDS: JUVEN PACKET PO SCH (08:27)
[2019-09-16] MEDS: THIAMINE HCL 100 MG TABLET PO SCH (08:28)
[2019-09-16] MEDS: LACTOBACILLUS/ACIDOPHILUS TAB FT SCH (08:28)
[2019-09-16] MEDS: METOPROLOL TAR 50 MG TAB PO SCH (08:28)
[2019-09-16] MEDS: VALPROIC ACID 250 MG/5 ML OSYR PO SCH ×2 (08:28→14:25)
[2019-09-16] MEDS: DOXYCYCLINE 100 MG CAP PO SCH (08:29)
[2019-09-16] MEDS: MEDIHONEY 44 ML TOPICAL TUBE TOP SCH (08:30)
[2019-09-16] MEDS: COLLAGENASE 30 GM OINTMENT TOP SCH (08:31)
[2019-09-16] MEDS: RIVAROXABAN 15 MG TABLET PO SCH (08:32)
[2019-09-16 09:26] VITALS: O2SAT 96
[2019-09-16 18:23] VITALS: BP 120/76; TEMP 98.9
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
== END 2019-09-16 18:18 | DRG 208 ==
LOC: ER 21:09 → ERHOLD 09-08 00:23 → 3RD-ICU 09-08 01:19 → 2ND 09-11 12:55
PROVIDERS: ADMIT Hospitalist; ATTEND Family Medicine
PROC: 8E0ZXY6 Isolation (ICD-10-PCS; principal; 2019-09-08)
PROC: 5A1945Z Respiratory Ventilation, 24-96 Consecutive Hours (ICD-10-PCS; 2019-09-08)
PROC: 0BH17EZ Insertion of Endotracheal Airway into Trachea, Via Natural or Artificial Opening (ICD-10-PCS; 2019-09-08)
PROC: 02HV33Z Insertion of Infusion Device into Superior Vena Cava, Percutaneous Approach (ICD-10-PCS; 2019-09-08)
DX: J15.6 Pneumonia due to other Gram-negative bacteria (principal); I26.99 Other pulmonary embolism without acute cor pulmonale; J96.21 Acute and chronic respiratory failure with hypoxia; E46 Unspecified protein-calorie malnutrition; Z68.1 Body mass index [BMI] 19.9 or less, adult; E87.0 Hyperosmolality and hypernatremia; K21.9 Gastro-esophageal reflux disease without esophagitis; Z93.1 Gastrostomy status; Z20.828 Contact with and (suspected) exposure to other viral communicable diseases; Z93.0 Tracheostomy status; Z79.02 Long term (current) use of antithrombotics/antiplatelets; Z79.899 Other long term (current) drug therapy; Z79.891 Long term (current) use of opiate analgesic; D50.9 Iron deficiency anemia, unspecified; E87.6 Hypokalemia; D63.8 Anemia in other chronic diseases classified elsewhere; R00.0 Tachycardia, unspecified; I69.998 Other sequelae following unspecified cerebrovascular disease; L89.90 Pressure ulcer of unspecified site, unspecified stage; E78.2 Mixed hyperlipidemia; I10 Essential (primary) hypertension
CPT/HCPCS: 36415; 36569; 71045; 71275; 80048; 80053; 80076; 80202; 81003; 81015; 82150; 82550; 82553; 82805; 82947; 83605; 83690; 83735; 84100; 84132; 84145; 84484; 85025; 85027; 85610; 85730; 87040; 87070; 87077; 87086; 87088; 87186; 87205; 93005; 94002; 94003; 94760; 99251; 99291; 99292; J0713; J1650; J2543; J3370; J3475; J3590; J7030; J7040; Q9967; U0002

== ENCOUNTER 2019-09-18 11:09 | Inpatient (IN) | payer OTHER ==
[2019-09-18] MEDS ORDERED: NA CHLORIDE 0.9% 2,000 ML ONE (11:34)
[2019-09-18] MEDS ORDERED: ACETAMINOPHEN 650MG/RECT SUPP PR ONE (11:34)
[2019-09-18 11:39] LABS: Absolute Lymphocytes (CBC) 0.8 K/uL (0.7-4.9); Basophils % 0.4 % (0-1.3); Hematocrit 28.5 % (39.6-49.0); Lymphocytes % 4.2 % (15.3-44.8)
[2019-09-18 11:40] LABS: Protime INR 1.64
--- NOTE | 2019-09-18 11:58 | RAD REPORT ---
EXAM DESCRIPTION: Jason Single View09/18/2019 11:45 am CLINICAL HISTORY: Chest pain COMPARISON: September 13, 2019 FINDINGS: Mild worsening in diffuse right lung opacities Subcentimeter nodular opacity within the left lung. Heart is normal size. PICC line in place. Tracheostomy tube noted IMPRESSION: Mild worsening in diffuse right lung opacities probably pneumonia
--- NOTE | 2019-09-18 12:27 | EDPHYS ---
Physician Documentation [facility] Name: Ramsey Gonzalez Age: 54 yrs Sex: Male : 1965 Arrival Date: 09/18/2019 Time: 11:12 Bed 3 Private MD: ED Physician Gorge Barton HPI: 09/17 11:28 This 54 yrs old Black Male presents to ER via EMS with complaints of Respiratory kdr Distress. 11:28 The patient was found at the [facility] to be in respiratory distress. On EMS kdr arrival, the patient was tachycardiac, tachypneic and hypotensive. The patient was reported to be in his usual state of health and mental status (A\T\O x 0). He was reported to have been discharged from [facility] yesterday for a prior admission for pneumonia. Onset: The symptoms/episode began/occurred just prior to arrival, at an unknown time. Severity of symptoms: At their worst the symptoms were moderate incapacitating just prior to arrival, in the emergency department the symptoms are unchanged. It is unknown whether or not the patient has had similar symptoms in the past. The patient has been recently been admitted at [facility], was discharged yesterday. Historical: - Allergies: 11:25 No Known Drug Allergies; tw2 - PMHx: 11:49 Pneumonia; Seizures; GERD; Hyperlipidemia; Hypertension; Contractures x4; tw2 - PSHx: 11:49 PEG tube; Picc Line Right Upper Arm; tw2 - Immunization history:: Adult Immunizations. - Social history:: Smoking status: . ROS: 11:28 Constitutional: The patient was unresponsive but per EMS had a fever and respiratory kdr distress. The patient was unable to give any history Eyes: Negative for injury, pain, redness, and discharge, Neck: Negative for injury, pain, and swelling. Exam: 11:28 Constitutional: This is a well developed, poorly nourished patient who is awake, not kdr aleart or responsive but eye are open. The patient appears in moderat distress Head/Face: Normocephalic, atraumatic. Eyes: Pupils equal round and reactive to light, extra-ocular motions intact. Lids and lashes normal. Conjunctiva and sclera are non-icteric and not injected. Cornea within normal limits. Periorbital areas with no swelling, redness, or edema. Neck: Trachea midline, no thyromegaly or masses palpated, and no cervical lymphadenopathy. Supple, full range of motion without nuchal rigidity, or vertebral point tenderness. No Meningismus. Chest/axilla: Normal chest wall appearance and motion. Nontender with no deformity. No lesions are appreciated. MS/ Extremity: Pulses equal, no cyanosis. Neurovascular intact. Full, normal range of motion. 11:28 Neuro: Orientation: unable to test, The patient has had a cva previously and in contracted and unresponsive to questions. 11:28 Psych: Unobtainable. Vital Signs: 11:16 BP 132 / 97; Pulse 148; Resp 55 A; Temp 101.4(R); Pulse Ox 98% on ETT vent; Weight 50.8 tw2 kg (R); 11:45 BP 118 / 98; Pulse 127; Resp 31; Pulse Ox 100% on R/A; tw2 12:30 BP 114 / 94; Pulse 131; Resp 32; Pulse Ox 100% on ETT vent; tw2 13:00 BP 122 / 82; Pulse 124; Resp 38; Pulse Ox 100% on ETT vent; tw2 13:06 Temp 100.6(R); tw2 13:15 BP 119 / 77; Pulse 128; Resp 43; Pulse Ox 100% on ETT vent; tw2 13:30 BP 119 / 76; Pulse 125; Resp 38; Pulse Ox 100% on ETT vent; tw2 13:45 BP 123 / 83; Pulse 130; Resp 31; Pulse Ox 100% on ETT vent; tw2 14:00 BP 110 / 79; Pulse 124; Resp 39; Pulse Ox 100% on ETT vent; tw2 14:17 BP 104 / 88; Pulse 122; Resp 33; Pulse Ox 100% on ETT vent; tw2 15:04 BP 112 / 85; Pulse 121; Resp 32; Pulse Ox 100% ; jl7 16:00 BP 111 / 87; Pulse 116; Resp 35; Pulse Ox 100% on ETT vent; tw2 16:30 BP 120 / 86; Pulse 121; Resp 36; Temp 99.3(R); Pulse Ox 100% on ETT vent; tw2 17:14 BP 119 / 88; Pulse 122; Resp 32; Pulse Ox 100% on ETT vent; tw2 18:00 BP 120 / 84; Pulse 118; Resp 29; Pulse Ox 100% on ETT vent; tw2 18:54 BP 120 / 86; Pulse 115; Resp 36; Pulse Ox 100% on ETT vent; tw2 19:00 BP 110 / 85; Pulse 118; Resp 17; Pulse Ox 100% on ETT vent; jd3 12:30 pt has trach, vent settings AC 16, 550 volume, 100% and peep of 10 per Filomena,RT at 1115 tw2 MDM: 11:28 Data reviewed: vital signs, nurses notes, diagnostic data from outside facility, lab kdr test result(s). Counseling: I had a detailed discussion with the patient and/or guardian regarding: the historical points, exam findings, and any diagnostic results supporting the discharge/admit diagnosis, lab results, radiology results, the need for further work-up and treatment in the hospital. 12:26 Patient medically screened. kdr 09/17 11:17 Order name: Amylase, Serum [facility] 09/17 11:17 Order name: Basic Metabolic Panel [facility] 09/17 11:17 Order name: Blood Culture Adult (2) [facility] 09/17 11:17 Order name: CBC with Diff [facility] 09/17 11:17 Order name: Ckmb; Complete Time: 13:34 [facility] 09/17 11:17 Order name: CPK; Complete Time: 13:34 [facility] 09/17 11:17 Order name: Lactate; Complete Time: 12:24 [facility] 09/17 11:17 Order name: LFT's; Complete Time: 13:34 [facility] 09/17 11:17 Order name: Lipase; Complete Time: 13:34 [facility] 09/17 11:17 Order name: Procalcitonin; Complete Time: 13:34 [facility] 09/17 11:17 Order name: Protime (+inr); Complete Time: 12:24 [facility] 09/17 11:17 Order name: Ptt, Activated; Complete Time: 12:24 [facility] 09/17 11:17 Order name: Troponin (emerg Dept Use Only); Complete Time: 13:34 [facility] 09/17 11:17 Order name: Urine Microscopic Only [facility] 09/17 11:18 Order name: Amylase; Complete Time: 13:34 EDMS 09/17 11:18 Order name: Basic Metabolic Panel; Complete Time: 13:34 EDMI 09/17 11:18 Order name: Blood Culture EDMS 09/17 11:18 Order name: CBC with Automated Diff EDMS 09/17 11:26 Order name: Glucose, Ancillary Testing; Complete Time: 12:24 EDMS 09/17 11:41 Order name: CBC Smear Scan EDMS 09/17 13:35 Order name: ABG la1 09/17 14:38 Order name: Glucose, Ancillary Testing EDMS 09/17 15:46 Order name: Lactate Sepsis 2 HR Follow-up EDMS 09/17 16:10 Order name: Urine Dipstick--Ancillary (enter results) bd 09/17 16:14 Order name: Urine Dipstick-Ancillary EDMS 09/17 22:21 Order name: Lactate EDMS 09/17 22:23 Order name: Creatine Phosphokinase EDMS 09/17 22:23 Order name: CKMB Creatine Kinase MB EDMS 09/17 22:23 Order name: Troponin I EDMS 09/18 05:14 Order name: CORONAVIRUS EDMI 09/17 11:17 Order name: Chest Single View XRAY; Complete Time: 12:24 7 09/17 11:17 Order name: Accucheck; Complete Time: 11:25 7 09/17 11:17 Order name: Cardiac monitoring; Complete Time: 11:45 7 09/17 11:17 Order name: EKG - Nurse/Tech; Complete Time: 12:57 7 09/17 11:17 Order name: Labs collected and sent; Complete Time: 11:45 7 09/17 11:17 Order name: O2 Per Protocol; Complete Time: 11:45 7 09/17 11:17 Order name: O2 Sat Monitoring; Complete Time: 11:44 7 09/17 11:17 Order name: Urine Dipstick-Ancillary (obtain specimen); Complete Time: 16:11 7 09/18 05:35 Order name: CBC with Automated Diff EDMS 09/18 06:05 Order name: Comprehensive Metabolic Panel EDMS 09/18 06:05 Order name: Creatine Phosphokinase EDMS 09/18 06:05 Order name: CKMB Creatine Kinase MB EDMS 09/18 06:05 Order name: Troponin I EDMS 09/18 06:05 Order name: Magnesium EDMS 09/18 07:24 Order name: ABO/RH no charge EDMS 09/18 07:32 Order name: Type and Screen EDMS 09/18 09:03 Order name: Urine Culture EDMS Administered Medications: 11:25 Drug: Tylenol Suppository 650 mg Route: MI; tw2 13:06 Follow up: Response: No adverse reaction; Temperature is decreased tw2 11:40 Drug: NS 0.9% (30 ml/kg) 30 ml/kg Route: IV; Rate: bolus; Site: PICC; tw2 14:17 Follow up: IV Status: Completed infusion; IV Intake: 1535ml tw2 12:35 Drug: Cefepime 2 grams {Note: IVP available at this time from pharmacy.} Route: IVPB; tw2 Rate: 200 ml/hr; Infused Over: 5 mins; Site: PICC; 12:40 Follow up: Response: No adverse reaction; IV Status: Completed infusion tw2 Point of Care Testing: Blood Glucose: 11:15 Blood Glucose: 102 mg/dL; aa5 Ranges: Critical Glucose Levels:Adult <50 mg/dl or >400 mg/dl <40 mg/dl or >180 mg/dl Disposition: 09/18/19 12:26 Hospitalization ordered by Juliano Chou for Inpatient Admission. Preliminary diagnosis is Pneumonia, unspecified organism. - Bed requested for Intensive Care Unit. - Status is Inpatient Admission. rb1 - Condition is Critical. - Problem is an acute exacerbation. - Symptoms have improved. Signatures: Dispatcher [employer] EDMS SanjeevyehudaNikole Diana, RN RN Gorge Barton MD MD kdr Martha, Cesar, ONLINE EDUCATION MANAGER-C ONLINE EDUCATION MANAGER-Cla1 Naomie Guzman, RN RN rb1 Dede Adrian RN RN tw2 Glo Moreira RN RN jl7 Corrections: (The following items were deleted from the chart) 12:58 11:17 IV Saline Lock - Large Bore ordered. jl7 tw2 17:41 12:26 Hospitalization Ordered by Juliano Chou DO for Inpatient Admission. Preliminary bd diagnosis is Pneumonia, unspecified organism. Bed requested for Intensive Care Unit. Status is Inpatient Admission. Condition is Critical. Problem is an acute exacerbation. Symptoms have improved. kdr 09/18 11:21 06 17:41 09/18/2019 12:26 Hospitalization Ordered by Juliano Chou DO for Inpatient dw Admission. Preliminary diagnosis is Pneumonia, unspecified organism. Bed requested for [facility] ER HOLD. Status is Inpatient Admission. Condition is Critical. Problem is an acute exacerbation. Symptoms have improved. bd 09/18 12:40 11:21 09/18/2019 12:26 Hospitalization Ordered by Juliano Chou DO for Inpatient rb1 Admission. Preliminary diagnosis is Pneumonia, unspecified organism. Bed requested for Intensive Care Unit. Status is Inpatient Admission. Condition is Critical. Problem is an acute exacerbation. Symptoms have improved. dw
--- NOTE | 2019-09-18 12:27 | ER ---
Nurse's Notes [facility] Name: Ramsey Gonzalez Age: 54 yrs Sex: Male : 1965 Arrival Date: 09/18/2019 Time: 11:12 Bed 3 Private MD: Diagnosis: Pneumonia, unspecified organism Presentation: 09/17 11:03 Acuity: TAMARA 1 tw2 11:03 Chief complaint: EMS states: pt from [facility], was release from here a few days ago, aide tw2 went into feed him by his peg tube and noticed he was working hard to breathe and diaphoretic, called us at o2 sat was 86% and tachypneic, bgl was 98 mg/dL, rectal temp of 102. we started a NS bolus. Initial Sepsis Screen: Does the patient meet any 2 criteria? RR > 20 per min. Temp <36.0*C (96.8*F)) or > 38.3*C (100.9*F). Altered Mental Status. HR > 90 bpm. Yes Does the patient have a suspected source of infection? Yes: Productive cough/pneumonia. Risk Assessment: Do you want to hurt yourself or someone else? Patient reports no desire to harm self or others. Note Dr. Barton at bedside at this time, RT paged. Onset of symptoms was September 18, 2019. 11:16 Coronavirus screen: Proceed with normal triage. Ebola Screen: Patient denies travel to [facility] an Ebola-affected area in the 21 days before illness onset. 11:16 Method Of Arrival: EMS: [facility] Triage Assessment: 11:24 General: Appears emaciated, contracted x 4. Behavior is listless. Pain: Unable to use 2 pain scale. Patient appears. Historical: - Allergies: 11:25 No Known Drug Allergies; tw2 - PMHx: 11:49 Pneumonia; Seizures; GERD; Hyperlipidemia; Hypertension; Contractures x4; tw2 - PSHx: 11:49 PEG tube; Picc Line Right Upper Arm; tw2 - Immunization history:: Adult Immunizations. - Social history:: Smoking status: . Screenin:40 Abuse screen: Denies threats or abuse. Nutritional screening: No deficits noted. tw2 Tuberculosis screening: No symptoms or risk factors identified. Fall Risk Secondary diagnosis (15 points) impaired mobility, CVA. Sepsis Screening:. Assessment: 11:13 General: Appears uncomfortable, emaciated, Behavior is unresponsive. Neuro: Level of tw2 Consciousness is unresponsive. Cardiovascular: Heart tones S1 S2 Patient's skin is warm and dry. Respiratory: Airway is patent Ventilator assessment: Ventilator Mode: Assist Control (AC) Tidal Volume: 550 Respiratory Rate: 36 FiO2: 100%. PEEP: 10 HOB > 30 degrees. Oral care provided. per EMS report pt was suctioned at [facility] with 12 fr suction and nothing returned, EMS used 18fr to suction and were able suction out a large amount of green/yellow, thick mucous at this time. Breath sounds with wheezes bilaterally. GI: PEG tube in place, Bowel sounds present X 4 quads. : to gravity drainage pt arrived with ramirez in place dated 09/09/2019 \[id number] LM Urine is cloudy. EENT: Oral mucosa is dry. Poor dentition noted. Derm: Skin is dry. Derm: Decubitus located on sacrum is unstageable. Musculoskeletal: Range of motion: noted contractions in all extremities. 11:46 Reassessment: Patient appears in no apparent distress at this time. No changes from tw2 previously documented assessment. 12:59 Reassessment: Patient appears in no apparent distress at this time. No changes from tw2 previously documented assessment. 13:30 Reassessment: Patient appears in no apparent distress at this time. No changes from tw2 previously documented assessment. 14:00 Reassessment: Patient appears in no apparent distress at this time. No changes from tw2 previously documented assessment. 14:21 Reassessment: Patient appears in no apparent distress at this time. No changes from tw2 previously documented assessment. 15:20 Reassessment: Patient appears in no apparent distress at this time. No changes from tw2 previously documented assessment. 16:41 Reassessment: Patient appears in no apparent distress at this time. No changes from tw2 previously documented assessment. 17:13 Reassessment: Patient appears in no apparent distress at this time. No changes from tw2 previously documented assessment. 18:15 Reassessment: Patient appears in no apparent distress at this time. No changes from tw2 previously documented assessment. 18:55 Reassessment: Patient appears in no apparent distress at this time. No changes from tw2 previously documented assessment. 19:00 Reassessment: pt charting continued in [facility]. jd3 09/18 05:00 Reassessment: pt remains placed on waffel matress at this time, pillow and blankets sg positioned for comfort and assist with prevention of pressure ulcers. Vital Signs: 09/17 11:16 BP 132 / 97; Pulse 148; Resp 55 A; Temp 101.4(R); Pulse Ox 98% on ETT vent; Weight 50.8 tw2 kg (R); 11:45 BP 118 / 98; Pulse 127; Resp 31; Pulse Ox 100% on R/A; tw2 12:30 BP 114 / 94; Pulse 131; Resp 32; Pulse Ox 100% on ETT vent; tw2 13:00 BP 122 / 82; Pulse 124; Resp 38; Pulse Ox 100% on ETT vent; tw2 13:06 Temp 100.6(R); tw2 13:15 BP 119 / 77; Pulse 128; Resp 43; Pulse Ox 100% on ETT vent; tw2 13:30 BP 119 / 76; Pulse 125; Resp 38; Pulse Ox 100% on ETT vent; tw2 13:45 BP 123 / 83; Pulse 130; Resp 31; Pulse Ox 100% on ETT vent; tw2 14:00 BP 110 / 79; Pulse 124; Resp 39; Pulse Ox 100% on ETT vent; tw2 14:17 BP 104 / 88; Pulse 122; Resp 33; Pulse Ox 100% on ETT vent; tw2 15:04 BP 112 / 85; Pulse 121; Resp 32; Pulse Ox 100% ; jl7 16:00 BP 111 / 87; Pulse 116; Resp 35; Pulse Ox 100% on ETT vent; tw2 16:30 BP 120 / 86; Pulse 121; Resp 36; Temp 99.3(R); Pulse Ox 100% on ETT vent; tw2 17:14 BP 119 / 88; Pulse 122; Resp 32; Pulse Ox 100% on ETT vent; tw2 18:00 BP 120 / 84; Pulse 118; Resp 29; Pulse Ox 100% on ETT vent; tw2 18:54 BP 120 / 86; Pulse 115; Resp 36; Pulse Ox 100% on ETT vent; tw2 19:00 BP 110 / 85; Pulse 118; Resp 17; Pulse Ox 100% on ETT vent; jd3 12:30 pt has trach, vent settings AC 16, 550 volume, 100% and peep of 10 per Filomena,RT at 1115 tw2 ED Course: 11:03 Side rails up X2. 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 Pulse ox on. NIBP on. tw2 11:12 Patient arrived in ED. em1 11:20 Initial lab(s) drawn, by me, sent to lab. First set of blood cultures drawn by me. aa5 11:24 Triage completed. tw2 11:24 Arm band placed on. tw2 11:27 Gorge Barton MD is Attending Physician. kdr 11:31 Second set of blood cultures drawn by me. aa5 11:31 Missed attempt(s): 22 gauge in left forearm. Bleeding controlled, band aid applied, aa5 catheter tip intact. 11:39 Dede Adrian RN is Primary Nurse. tw2 11:45 Chest Single View XRAY In Process Unspecified. EDMS 11:54 Notified ED physician of a critical lab result(s). Lactate 3.3. aa5 12:25 Juliano Chou DO is Hospitalizing Provider. kdr 15:03 Repeat lab(s) drawn. by me, sent to lab. jl7 19:00 No provider procedures requiring assistance completed. Patient admitted, IV remains in jd3 place. 19:05 Report given to ABHAY Altamirano and ABHAY Barnard. tw2 06/04 07:00 Accessed PICC line. Clean \T\ dry. Dressing intact. Good blood return. Flushes easily. rb1 12:38 No provider procedures requiring assistance completed. rb1 12:38 Patient admitted, IV remains in place. rb1 Administered Medications: 09/17 11:25 Drug: Tylenol Suppository 650 mg Route: RI; tw2 13:06 Follow up: Response: No adverse reaction; Temperature is decreased tw2 11:40 Drug: NS 0.9% (30 ml/kg) 30 ml/kg Route: IV; Rate: bolus; Site: PICC; tw2 14:17 Follow up: IV Status: Completed infusion; IV Intake: 1535ml tw2 12:35 Drug: Cefepime 2 grams {Note: IVP available at this time from pharmacy.} Route: IVPB; tw2 Rate: 200 ml/hr; Infused Over: 5 mins; Site: PICC; 12:40 Follow up: Response: No adverse reaction; IV Status: Completed infusion tw2 Point of Care Testing: Blood Glucose: 11:15 Blood Glucose: 102 mg/dL; aa5 Ranges: Intake: 14:17 IV: 1535ml; Total: 1535ml. tw2 Output: 16:07 Urine: 300ml (Ramirez); Total: 300ml. tw2 Outcome: 12:26 Decision to Hospitalize by Provider. kdr 19:00 Admitted to ER Hold. Please see [facility] for further documentation. jd3 19:00 Condition: stable 19:00 Instructed on the need for admit. 09/18 12:38 Admitted to ICU accompanied by nurse, via stretcher, room 7, with chart, Report called rb1 to ABHAY Elkins Admitted to ICU Other With respiratory Condition: stable Instructed on the need for admit. 12:40 Patient left the ED. rb1 Signatures: Dispatcher [employer] EDMS Antione Adamson, RN RN sg Gorge Barton MD MD kdr Martinez, Eric em1 Niurka Christianson RN RN aa5 Naomie Guzman, RN RN rb1 Dede Adrian RN RN tw2 Glo Moreira RN RN jl7 Dave Flores RN RN jd3 Corrections: (The following items were deleted from the chart) 06 17:14 16:00 BP 120 / 86; Pulse 121bpm; Resp 36bpm; Pulse Ox 100% ET / Ventilator; Temp 99.3F tw2 Rectal; tw2 09/18 12:39 12:38 No provider procedures requiring assistance completed. rb1 rb1
[2019-09-18 12:30] LABS: ALT/SGPT 38 U/L (12-78); AST/SGOT 38 U/L (15-37); Albumin 1.1 g/dL (3.4-5.0); Alkaline Phosphatase 113 U/L (45-117); BUN Blood Urea Nitrogen 13 mg/dL (7-18); Bicarbonate 25 mmol/L (21-32); Bilirubin Direct 0.1 mg/dL (0-0.2); Bilirubin Total 0.2 mg/dL (0.2-1.0); CKMB Creatine Kinase MB 3.3 ng/mL (0.3-3.6); Creatine Phosphokinase 134 U/L (39-308); Glucose Level 104 mg/dL (74-106); Lipase 38 U/L (73-393); Potassium 5.2 mmol/L (3.5-5.1); Protein, Total 7.8 g/dL (6.4-8.2); Sodium Level 134 mmol/L (136-145); Troponin (Emerg Dept Use Only) < 0.02 ng/mL (0.0-0.045)
[2019-09-18] MEDS ORDERED: CEFEPIME/SWI 2gm 2 GM/20 ML SYR IVP ONE (12:30)
[2019-09-18 12:36] LABS: Amylase 221 U/L (25-115)
[2019-09-18 13:39] LABS: Anisocytosis 1+; Blood Morphology Comment NOTED (NOT SEEN); Platelet Estimate INCR; Urine White Blood Cell Casts OK
[2019-09-18 13:50] LABS: Blood Gas Oxyhemoglobin 83.5 % (94-97); Blood O2 Saturation 85.1 % (92-98.5)
--- NOTE | 2019-09-18 15:53 | P.HP ---
Certification for Inpatient Patient admitted to: Inpatient With expected LOS: >2 Midnights <MarthaCesar - Last Filed: 09/18/19 15:48> Patient History Date of Service: 09/18/19 Primary Care Provider: prison physician Reason for admission: Acute respiratory failure, Healthcare acquired pneumonia, hypoxia History of Present Illness: 54-year-old male with history of CVA with trach and a PEG tube, seizure disorder, presented to the emergency department after intermediate staff went into given his morning medications and found him to be tachypneic, diaphore tic. prison staff reports patient's oxygen saturations were in the mid 70s to low 80s. Patient is placed on oxygen at intermediate and EMS was called. Upon arrival to the emergency department patient was febrile, tachycardic, and hypoxic at 86% on oxygen. Patient was placed on ventilator and given sepsis fluids and antibiotics. It was felt that patient was recently discharged from the hospital after treating a pneumonia. Chest x-ray shows a worsening of the right-sided pneumonia. Case was discussed with intermediate staff reports that the patient has been taking his antibiotics and his xarelto as prescribed. ED provider wishes to admit patient for further evaluation management. When I saw the patient in the emergency department he appeared ill. Patient eyes are open but does not respond to any verbal or painful stimulus. Patient is tachycardic and febrile, appears to be septic. The patient has not experienced any hypotension at this point in time. Patient will be admitted to the intensive care unit and monitor closely. 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 -: hyperlipidemia -: acute respiratory distress -: essential primary hypertension -: GERD -: epileptic seizure -: disorders of electrolyte and fluid balance -: vitamin deficiency -: Tracheostomy -: PEG tube placement - Family History Family History: Reviewed- Non-Contributory - Social History Smoking Status: Former smoker Alcohol use: No CD- Drugs: No Caffeine use: No Place of Residence: Residential <Cesar Thomas - Last Filed: 09/18/19 15:48> Date of Service: 09/18/19 - Past Medical/Surgical History Psychosocial/ Personal History: Patient is a resident at a intermediate - Family History Family History: Reviewed- Non-Contributory <Juliano Chou - Last Filed: 09/18/19 18:31> Allergies No Known Drug Allergies Allergy (Verified 09/08/19 00:37) Itching/Hives/Rash Home Medications: Acetaminophen with Codeine [Tylenol with Codeine #3 Tablet] 2 tab PO Q4HP PRN 09/08/19 Collagenase [Santyl Ointment*] 1 luna TOP DAILY 09/08/19 Famotidine [Pepcid*] 20 mg PO BID 09/08/19 Lactobacillus Acidophilus [Probiotic Acidophilus] 1 cap FT BID 09/08/19 Metoprolol Tartrate [Lopressor*] 100 mg PO BID 09/08/19 Scopolamine 1 each TD Q72H 09/08/19 Thiamine HCl [Vitamin B-1*] 1 tab PO DAILY 09/08/19 Valproic Acid Syrup [Depakene Syrup*] 10 ml PO TID 09/08/19 Doxycycline Monohydrate 100 mg FT BID #14 tablet 09/16/19 Meño [Meño*] 1 pkt PO BID powd.pack 09/16/19 Rivaroxaban [Xarelto*] 15 mg PO BID #30 tablet 09/16/19 cefTAZidime [Tazicef] 1 gm IV Q8HR #1 vial 09/16/19 Review of Systems is unable to be obtained (Patient is unresponsive at baseline mental status and on ventilator through Tracheostomy) <Cesar Thomas - Last Filed: 09/18/19 15:48> Physical Examination - Physical Exam General: Disheveled, Unresponsive HEENT: Normocephalic Neck: Other (Tracheostomy noted) Respiratory: Diminished, Crackles/rales (Right lung tay) Cardiovascular: No edema Capillary refill: <2 Seconds Gastrointestinal: Hypoactive, Other (PEG tube noted) Musculoskeletal: Contractures Integumentary: Other (Patient noted to have multiple decubitus ulcers) Neurological: Other (Patient eyes are open but is otherwise unresponsive.) - Studies Laboratory Data (last 24 hrs) 09/18/19 11:21: PT 19.2 H, INR 1.64, APTT 31.1 09/18/19 11:21: WBC 18.1 H D, Hgb 9.0 L, Hct 28.5 L, Plt Count 498 H 09/18/19 11:21: Sodium 134 L, Potassium 5.2 H, BUN 13, Creatinine 0.49 L, Glucose 104, Total Bilirubin 0.2, AST 38 H, ALT 38, Alkaline Phosphatase 113, Amylase 221 H* D, Lipase 38 L <Cesar Thomas - Last Filed: 09/18/19 15:48> - Physical Exam General: Other (Patient nonverbal) Cardiovascular: Regular rate/rhythm - Studies Laboratory Data (last 24 hrs) 09/18/19 11:21: PT 19.2 H, INR 1.64, APTT 31.1 09/18/19 11:21: WBC 18.1 H D, Hgb 9.0 L, Hct 28.5 L, Plt Count 498 H 09/18/19 11:21: Sodium 134 L, Potassium 5.2 H, BUN 13, Creatinine 0.49 L, Glucose 104, Total Bilirubin 0.2, AST 38 H, ALT 38, Alkaline Phosphatase 113, Amylase 221 H* D, Lipase 38 L <Juliano Chou - Last Filed: 09/18/19 18:31> Assessment and Plan - Plan Assessment Acute on chronic Respiratory failure with hypoxia secondary to right-sided health-care associated bacterial pneumonia History of cerebral vascular accident Status post tracheostomy placement Status post PEG tube placement History of seizure disorder Mixed hyperlipidemia GERD Hypertension Plan Acute on chronic Respiratory failure with hypoxia secondary to right-sided health-care associated bacterial pneumonia: Patient is currently on a ventilator via tracheostomy. Antibiotics that were to be administered the patient will be continued from pulmonology and Infectious Disease recommendations from previous admission. Pulmonology has been consulted on this case. Patient will be admitted to the intensive care unit for close monitoring. DVT prophylaxis with xarelto has patient was previously diagnosed with a pulmonary embolism. Anticipate clinical improvement in the next 48-72 hr at which time patient will likely be able to be discharged back to intermediate unless it is deemed that the patient will require higher level of care. History of cerebral vascular accident: Will continue to monitor patient's neuro status throughout this hospitalization. Will continue patient's home medications. Patient currently on Xarelto. Status post tracheostomy placement: Patient will be provided with oxygen therapy as require through trach. Will perform trach maintenance as required. Status post PEG tube placement: Will continue tube feeds through PEG tube with head miller consult. History of seizure disorder: Will place patient on seizure precautions and continue to monitor. Will continue patient's home medication. Mixed hyperlipidemia: Will obtain and continue patient's home medications. GERD: Will obtain and continue patient's home medications. Hypertension: Will obtain and continue patient's home medications. Discharge Plan: Residential Plan to discharge in: Greater than 2 days - Advance Directives Does patient have a Living Will: No Does patient have a Durable POA for Healthcare: No - Code Status/Comfort Care Code Status Assessed: Yes (Patient is full code) Critical Care: Yes Time Spent Managing Pts Care (In Minutes): 55 <Cesar Thomas - Last Filed: 09/18/19 15:48> - Plan Patient examined. Agree with exam, evaluation, and plan of care provided by nurse practitioner. Spoke with pulmonology. Patient will continue on the vent. Patient will likely require discharge to a facility that will provide vent support. Patient with multiple prior admissions requiring vent. Will continue monitor closely. Medications reviewed. Continue IV antibiotic therapy. Patient to be restarted on Xarelto. Will tried to reach out to family or medical power of trial attorney to determine code status. <Juliano Chou - Last Filed: 09/18/19 18:31>
[2019-09-18 16:13] LABS: Urine Blood TRACE (NEG); Urine Glucose NEGATIVE (NEG); Urine Protein NEGATIVE (NEG); Urine Specific Gravity 1.015 (1.005-1.030)
[2019-09-18 16:49] LABS: Urine Bacteria 20-50 /HPF (NONE SEEN); Urine Culture Reflex Order REFLEXED; Urine RBC <5 /HPF (NONE SEEN); Urine Yeast PRESENT (NONE SEEN)
[2019-09-18] MEDS ORDERED: ALBUTEROL 2.5 MG/3 ML NEB SOL NEB PRN (21:06)
[2019-09-18] MEDS: METOPROLOL TAR 50 MG TAB FT SCH (21:06)
[2019-09-18] MEDS ORDERED: ONDANSETRON 4 MG/2 ML VIAL IV PRN (21:06)
[2019-09-18] MEDS: NA CHLORIDE 0.9% 1,000 ML IV SCH (21:06)
[2019-09-18] MEDS: RIVAROXABAN 15 MG TABLET PO SCH (21:06)
[2019-09-18] MEDS ORDERED: ACETAMINOPHEN 500 MG TAB FT PRN (21:06)
[2019-09-18] MEDS: DOXYCYCLINE 100 MG in NA CHLORIDE 0.9% 100 ML IVPB SCH (21:06)
[2019-09-18] MEDS ORDERED: IPRATROPIUM BROM 0.5MG/2.5ML NEB PRN (21:06)
[2019-09-18] MEDS: CEFTAZIDIME 1 GM VIAL IV SCH (21:06)
[2019-09-18] MEDS ORDERED: NA CHLORIDE 0.9% 100 ML IV ONE ×2 (21:21→21:38)
[2019-09-18] MEDS ORDERED: DOXYCYCLINE HYCLATE 100MG INJ ONE (21:54)
[2019-09-18 22:22] LABS: Creatine Phosphokinase 257 U/L (39-308); Troponin I < 0.02 ng/mL (0.0-0.045)
[2019-09-18 23:56] VITALS: O2SAT 100
[2019-09-19] MEDS: CEFTAZIDIME 1 GM VIAL IV SCH ×2 (01:00→09:00)
[2019-09-19] MEDS ORDERED: NA CHLORIDE 0.9% 100 ML IV ONE (01:42)
[2019-09-19 05:32] LABS: Absolute Lymphocytes (CBC) 1.4 K/uL (0.7-4.9); Basophils % 0.7 % (0-1.3); Hematocrit 23.2 % (39.6-49.0); Lymphocytes % 8.3 % (15.3-44.8); RBC Red Blood Cell Count 3.23 M/uL (4.33-5.43)
[2019-09-19 06:05] LABS: ALT/SGPT 33 U/L (12-78); AST/SGOT 38 U/L (15-37); Albumin 1.1 g/dL (3.4-5.0); Alkaline Phosphatase 107 U/L (45-117); BUN Blood Urea Nitrogen 12 mg/dL (7-18); Bicarbonate 26 mmol/L (21-32); Bilirubin Total 0.4 mg/dL (0.2-1.0); Creatine Phosphokinase 316 U/L (39-308); Glucose Level 78 mg/dL (74-106); Magnesium 1.9 mg/dL (1.8-2.4); Potassium 4.2 mmol/L (3.5-5.1); Protein, Total 7.4 g/dL (6.4-8.2); Sodium Level 137 mmol/L (136-145); Troponin I < 0.02 ng/mL (0.0-0.045)
[2019-09-19] MEDS: NA CHLORIDE 0.9% 1,000 ML IV SCH ×3 (07:06→22:31)
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
[2019-09-19] MEDS: METOPROLOL TAR 50 MG TAB FT SCH ×2 (09:00→20:50)
[2019-09-19] MEDS: THIAMINE 200 MG/2 ML INJ IVP SCH (09:00)
[2019-09-19] MEDS: DOXYCYCLINE 100 MG in NA CHLORIDE 0.9% 100 ML IVPB SCH ×2 (09:00→20:47)
--- NOTE | 2019-09-19 09:56 | EKG ---
Test Date: 2019-09-18 Test Time: 12:05:32 Dissolver Operator: SUAD MEASUREMENT RESULTS: Intervals: Rate: 134 NH: 126 QRSD: 68 QT: 296 QTc: 442 [place]: P: 76 NH: 126 QRS: 97 T: 62 INTERPRETIVE STATEMENTS: Sinus tachycardia Possible Left atrial enlargement RSR' or QR pattern in V1 suggests right ventricular conduction delay Lateral infarct, age undetermined Abnormal ECG Compared to ECG 09/15/2019 06:51:39 RSR' in V1 or V2 now present Myocardial infarct finding now present Short NH interval no longer present Electronically Signed On 09-19-19 09:54:07 CDT by Daniel Campa
[2019-09-19] MEDS ORDERED: WATER FOR INJ,STERILE 10 ML ONE (10:05)
[2019-09-19] MEDS ORDERED: NA CHLORIDE 0.9% 50 ML IV ONE (10:23)
[2019-09-19] MEDS ORDERED: THIAMINE 200 MG/2 ML INJ ONE (10:38)
[2019-09-19] MEDS: RIVAROXABAN 15 MG TABLET PO SCH ×2 (10:50→20:50)
[2019-09-19] MEDS ORDERED: NA CHLORIDE 0.9% 250 ML ONE (13:29)
[2019-09-19] MEDS: COLLAGENASE 30 GM OINTMENT TOP SCH (13:58)
--- NOTE | 2019-09-19 14:16 | P.PN ---
Subjective Date of Service: 09/19/19 Primary Care Provider: correction physician Chief Complaint: Acute respiratory failure, Healthcare acquired pneumonia, hypoxia Subjective: Other (Patient is nonverbal. Patient on ventilator.) Physical Examination - Vital Signs Temperature: 99.0 F Blood Pressure: 101/77 Pulse: 108 Respirations: 16 Pulse Ox (%): 100 - Physical Exam General: Other (Nonverbal. Patient on ventilator.) HEENT: Other (Tracheostomy site stable) Neck: Supple Respiratory: Crackles/rales Cardiovascular: Regular rate/rhythm Musculoskeletal: Contractures Integumentary: Other (Some edema to the lower extremities) - Studies Microbiology Data (last 24 hrs): 09/18/19 11:30 Blood - Blood Anaerobic Blood Culture - Final Medications List Reviewed: Yes Assessment & Plan Discharge Plan: [facility] Plan to discharge in: 72 Hours Physician Review Additional Text: Assessment Acute on chronic Respiratory failure with hypoxia secondary to right-sided health-care associated bacterial pneumonia History of cerebral vascular accident Status post tracheostomy placement Status post PEG tube placement History of seizure disorder Mixed hyperlipidemia GERD Hypertension Anemia of chronic disease Plan Acute on chronic Respiratory failure with hypoxia secondary to right-sided health-care associated bacterial pneumonia: Continue ventilator. Continue IV antibiotic therapy. Await sputum and blood culture results. Will also continue with Xarelto. Will discuss with pulmonology. Case was discussed with pulmonology yesterday. Pulmonology recommends that the patient go to a shelter with ventilator. Will review medications. Will try to get a hold of fa [place] member or somebody who has medical power of spike machine heater to discuss plan of care. Patient is hospice appropriate. Will also need to address advanced directives and a advance care planning. Will discuss with licensed master social worker to help with this. History of cerebral vascular accident: Patient is nonverbal. Patient with contractures.. Will continue patient's home medications. Patient currently on Xarelto. Status post tracheostomy placement: Continue as above. Status post PEG tube placement: Will continue with PEG tube feeds with dietary on board.. History of seizure disorder: Continue medication Mixed hyperlipidemia: Continue medication. GERD: Continue patient's home medications. Hypertension: Continue patient's home medications. Anemia of chronic disease: Will recheck hemoglobin. If hemoglobin below 7.5 w ill transfuse. Time Spent Managing Pts Care (In Minutes): 55
[2019-09-19] MEDS ORDERED: FUROSEMIDE 20 MG/ 2ML VIAL IV PRN (15:04)
[2019-09-19] MEDS ORDERED: VITAL AF 1,000 ML BOT FT SCH (16:00)
[2019-09-19] MEDS: CEFTAZIDIME 1 GM in NA CHLORIDE 0.9% 50 ML IV SCH (16:46)
[2019-09-19 18:23] LABS: Hematocrit 27.8 % (39.6-49.0)
[2019-09-19] MEDS: VALPROIC ACID 250 MG/5 ML OSYR PO SCH (20:48)
[2019-09-20] MEDS: CEFTAZIDIME 1 GM in NA CHLORIDE 0.9% 50 ML IV SCH ×3 (01:27→16:49)
[2019-09-20 05:52] LABS: Absolute Lymphocytes (CBC) 1.9 K/uL (0.7-4.9); Basophils % 0.8 % (0-1.3); Lymphocytes % 10.8 % (15.3-44.8); MPV 8.2 fL (7.6-11.3); RBC Red Blood Cell Count 3.24 M/uL (4.33-5.43)
[2019-09-20 05:57] LABS: ALT/SGPT 35 U/L (12-78); AST/SGOT 48 U/L (15-37); Alkaline Phosphatase 118 U/L (45-117); BUN Blood Urea Nitrogen 12 mg/dL (7-18); Bicarbonate 27 mmol/L (21-32); Bilirubin Total 0.5 mg/dL (0.2-1.0); Glucose Level 108 mg/dL (74-106); Magnesium 1.7 mg/dL (1.8-2.4); Potassium 3.5 mmol/L (3.5-5.1); Protein, Total 6.8 g/dL (6.4-8.2); Sodium Level 138 mmol/L (136-145)
[2019-09-20 07:14] VITALS: BMI 19.6
[2019-09-20] MEDS: DOXYCYCLINE 100 MG in NA CHLORIDE 0.9% 100 ML IVPB SCH ×2 (09:41→20:08)
[2019-09-20] MEDS: THIAMINE 200 MG/2 ML INJ IVP SCH (09:41)
[2019-09-20] MEDS: METOPROLOL TAR 50 MG TAB FT SCH ×2 (09:42→20:07)
[2019-09-20] MEDS: RIVAROXABAN 15 MG TABLET PO SCH ×2 (09:42→20:07)
[2019-09-20] MEDS: VALPROIC ACID 250 MG/5 ML OSYR PO SCH ×3 (09:42→20:06)
--- NOTE | 2019-09-20 14:03 | P.PN ---
Subjective Date of Service: 09/20/19 Primary Care Provider: [facility] physician Chief Complaint: Acute respiratory failure, Healthcare acquired pneumonia, hypoxia Subjective: Other (Patient remains stable this time.) Physical Examination - Vital Signs Temperature: 98.0 F Blood Pressure: 116/84 Pulse: 88 Respirations: 20 Pulse Ox (%): 98 - Physical Exam General: Other (Patient on ventilator. Patient nonverbal) Neck: Supple Respiratory: Crackles/rales Cardiovascular: Normal pulses, Regular rate/rhythm Musculoskeletal: Contractures Neurological: Other (Patient nonverbal) - Studies Microbiology Data (last 24 hrs): 09/18/19 11:30 Blood - Blood Anaerobic Blood Culture - Final Medications List Reviewed: Yes Assessment & Plan Discharge Plan: Prison ([facility] with ventilator services) Plan to discharge in: 48 Hours - Code Status/Comfort Care Code Status Assessed: Yes Code Status: Full Code Physician Review Additional Text: Assessment Acute on chronic Respiratory failure with hypoxia secondary to right-sided health-care associated bacterial pneumonia History of cerebral vascular accident Status post tracheostomy placement Status post PEG tube placement History of seizure disorder Mixed hyperlipidemia GERD Hypertension Anemia of chronic disease Plan Acute on chronic Respiratory failure with hypoxia secondary to right-sided health-care associated bacterial pneumonia: Continue ventilator. Continue IV antibiotic therapy. Await sputum and blood culture results. Will also continue with Xarelto. Case discussed at length with pulmonology. Pulmonology recommends the patient to be sent to a facility with ventilator services. Social work to help with this process. Spoke with family member at length yesterday. She will come in tomorrow to reassess advanced directives and advanced care planning. Currently family member wants the patient to be full code. Patient is hospice appropriate. Will further discuss tomorrow about the possibility of changing his advanced directives and pursue hospice. History of cerebral vascular accident: Patient is nonverbal. Patient with contractures.. Will continue patient's home medications. Patient currently on Xarelto. Status post tracheostomy placement: Continue as above. Status post PEG tube placement: Will continue with PEG tube feeds with dietary on board.. History of seizure disorder: Continue medication Mixed hyperlipidemia: Continue medication. GERD: Continue patient's home medications. Hypertension: Continue patient's home medications. Anemia of chronic disease: Will recheck hemoglobin. If hemoglobin below 7.5 will transfuse. Time Spent Managing Pts Care (In Minutes): 55
--- NOTE | 2019-09-20 14:53 | P.PN ---
Subjective Date of Service: 09/20/19 Primary Care Provider: shelter physician Chief Complaint: Acute respiratory failure, Healthcare acquired pneumonia, hypoxia Physical Examination - Vital Signs Temperature: 98.0 F Blood Pressure: 116/84 Pulse: 88 Respirations: 20 Pulse Ox (%): 98 - Studies Microbiology Data (last 24 hrs): 09/18/19 11:30 Blood - Blood Anaerobic Blood Culture - Final Medications List Reviewed: Yes Assessment & Plan - Problems (Diagnosis) (1) Acute and chronic respiratory failure Current Visit: Yes Status: Acute Plan: Patient is 54 years of age with recurrent hospital admissions as back on a ventilator has copious purulent secretions previous admission was discharged on ceftazidime and doxycycline he is back again consider referral to custodial that is takes care of ventilator patient's he probably benefit from of ventilator patient is hypercapnic and hypoxic sputum cultures ordered this back on is antibiotic Consul socially responsible investment adviser for a [facility] facility overall prognosis is very poor cultures pending patient has and recent PE is on Xarelto slight decline in his hemoglobin will continue to monitor Physician Review Additional Text: Assessment Acute on chronic Respiratory failure with hypoxia secondary to right-sided health-care associated bacterial pneumonia History of cerebral vascular accident Status post tracheostomy placement Status post PEG tube placement History of seizure disorder Mixed hyperlipidemia GERD Hypertension Anemia of chronic disease Plan Acute on chronic Respiratory failure with hypoxia secondary to right-sided health-care associated bacterial pneumonia: Continue ventilator. Continue IV antibiotic therapy. Await sputum and blood culture results. Will also continue with Xarelto. Case discussed at length with pulmonology. Pulmonology pineda mmends the patient to be sent to a facility with ventilator services. Social work to help with this process. Spoke with family member at length yesterday. She will come in tomorrow to reassess advanced directives and advanced care planning. Currently family member wants the patient to be full code. Patient is hospice appropriate. Will further discuss tomorrow about the possibility of changing his advanced directives and pursue hospice. History of cerebral vascular accident: Patient is nonverbal. Patient with contractures.. Will continue patient's home medications. Patient currently on Xarelto. Status post tracheostomy placement: Continue as above. Status post PEG tube placement: Will continue with PEG tube feeds with dietary on board.. History of seizure disorder: Continue medication Mixed hyperlipidemia: Continue medication. GERD: Continue patient's home medications. Hypertension: Continue patient's home medications. Anemia of chronic disease: Will recheck hemoglobin. If hemoglobin below 7.5 w ill transfuse.
--- NOTE | 2019-09-20 15:37 | RAD REPORT ---
EXAM DESCRIPTION: RYANCornelius Single View09/20/2019 3:18 pm CLINICAL HISTORY: Respiratory failure COMPARISON: September 17 FINDINGS: Moderate improvement in right lung opacities No other significant change IMPRESSION: Moderate improvement in right lung opacities
--- NOTE | 2019-09-20 15:56 | P.DS ---
Admission Date: 09/18/19 Discharge Date: 09/20/19 Primary Care Provider: [facility] physician Disposition: TRANSFR TO OTHER-PSY/CD/REHAB Discharge Condition: GOOD Reason for Admission: Acute respiratory failure, Healthcare acquired pneumonia, hypoxia Consultations: Pulmonary-Dr. Hazel Procedures: Medical problem list: Acute on chronic Respiratory failure with hypoxia secondary to right-sided health-care associated bacterial pneumonia complicated with recent pulmonary embolism on chronic anti coagulation therapy History of cerebral vascular accident Status post tracheostomy placement Status post PEG tube placement History of seizure disorder Mixed hyperlipidemia GERD Hypertension Anemia of chronic disease Brief History of Present Illness: 54-year-old male with history of CVA with trach and a PEG tube, seizure disorder, presented to the emergency department after senior living staff went into given his morning medications and found him to be tachypneic, diaphoretic. [facility] staff reports patient's oxygen saturations were in the mid 70s to low 80s. Patient is placed on oxygen at senior living and EMS was called. Upon arrival to the emergency department patient was febrile, tachycardic, and hypoxic at 86% on oxygen. Patient was placed on ventilator and given sepsis fluids and antibiotics. It was felt that patient was recently discharged from the hospital after treating a pneumonia. Chest x-ray shows a worsening of the right-sided pneumonia. Case was discussed with senior living staff reports that the patient has been taking his antibiotics and his xarelto as prescribed. ED provider wishes to admit patient for further evaluation management. Hospital Course: Patient presented with acute on chronic respiratory failure with hypoxia secondary to right-sided healthcare associated bacterial pneumonia. Patient was recently hospitalized. Patient was found to have positive sputum culture for methicillin-resistant Staph aureus and pulmonary embolism. He was sent back to the senior living for continued IV antibiotic therapy and anti coagulation therapy. The patient returned due to increased shortness of breath. The patient was admitted to ICU for further treatment. Since then patient seen by pulmonology. Patient has remained stable on the ventilator. Social work help to get patient approved to go to a high-level skilled facility to continue vent management as the patient will likely require ventilator indefinitely. At discharge patient will continue with IV antibiotic therapy. Ceftazidime 1 g every 8 hr and doxycycline 100 mg twice daily for likely 7 more days. Repeat cultures have been obtained. Patient will continue with Xarelto for initial treatment then transition to chronic anti coagulation therapy indefinitely. Patient with other medical problems including seizure disorder, hyperlipidemia, GERD, hypertension, anemia of chronic disease and prior CVA. Patient with tracheostomy and PEG tube in place. Patient will continue with current medications at this time and continue care at the facility. I have discussed plan of care with the patient making decisions for him. I will recommend that the person making decisions for the patient to reassess his current plan of care and advanced care planning at the other facility. Will need to consider hospice in the future if his condition continues to decline. Vital Signs/Physical Exam: Temp Pulse Resp BP Pulse Ox 98.0 F 88 20 116/84 98 09/20/19 14:02 09/20/19 14:02 09/20/19 14:02 09/20/19 14:02 09/20/19 14:02 General: Alert Neck: Supple, Other (trachostomy) Respiratory: Diminished Cardiovascular: Regular rate/rhythm Gastrointestinal: Normal bowel sounds, Soft and benign, Non-distended, Other (peg tub in place. ) Musculoskeletal: Contractures Neurological: Other (Patient nonverbal) Laboratory Data at Discharge: WBC 17.6 K/uL (4.3-10.9) H 09/20/19 05:09 Hgb 8.0 g/dL (13.6-17.9) L 09/20/19 05:09 Hct 24.0 % (39.6-49.0) L 09/20/19 05:09 Plt Count 475 K/uL (152-406) H 09/20/19 05:09 PT 19.2 SECONDS (9.5-12.5) H 09/18/19 11:21 INR 1.64 09/18/19 11:21 APTT 31.1 SECONDS (24.3-36.9) 09/18/19 11:21 Sodium 138 mmol/L (136-145) 09/20/19 05:09 Potassium 3.5 mmol/L (3.5-5.1) 09/20/19 05:09 BUN 12 mg/dL (7-18) 09/20/19 05:09 Creatinine 0.31 mg/dL (0.55-1.3) L 09/20/19 05:09 Glucose 108 mg/dL (74-106) H 09/20/19 05:09 Magnesium 1.7 mg/dL (1.8-2.4) L 09/20/19 05:09 Total Bilirubin 0.5 mg/dL (0.2-1.0) 09/20/19 05:09 AST 48 U/L (15-37) H 09/20/19 05:09 ALT 35 U/L (12-78) 09/20/19 05:09 Alkaline Phosphatase 118 U/L (45-117) H 09/20/19 05:09 Troponin I < 0.02 ng/mL (0.0-0.045) 09/19/19 05:04 Amylase 221 U/L (25-115) H* D 09/18/19 11:21 Lipase 38 U/L (73-393) L 09/18/19 11:21 Home Medications: Acetaminophen with Codeine [Tylenol with Codeine #3 Tablet] 2 tab FT Q4HP PRN 09/08/19 Collagenase [Santyl Ointment*] 1 luna TOP DAILY 09/08/19 Famotidine [Pepcid*] 20 mg FT BID 09/08/19 Metoprolol Tartrate [Lopressor*] 100 mg FT BID 09/08/19 Thiamine HCl [Vitamin B-1*] 1 tab FT DAILY 09/08/19 Valproic Acid Syrup [Depakene Syrup*] 10 ml PO TID 09/08/19 Doxycycline Monohydrate 100 mg FT BID 09/20/19 Meño [Meño*] 1 pkt FT DAILY 09/20/19 Rivaroxaban [Xarelto*] 15 mg FT BID 09/20/19 levETIRAcetam [Keppra Tab] 1,500 mg FT BID 09/20/19 Patient Discharge Instructions: Patient will continue with current regimen. Patient stable for transfer to [facility] facility. Diet: tube feeds Activity: Bedrest Time spent managing pt's care (in minutes): 55
[2019-09-20] MEDS: COLLAGENASE 30 GM OINTMENT TOP SCH (16:00)
[2019-09-20] MEDS ORDERED: INFLUENZA VACCINE (for 3y+) 0.5 ML DOSE IMVAC ONE (17:00)
[2019-09-20] MEDS ORDERED: ALBUTEROL 2.5 MG/3 ML NEB SOL NEB PRN (18:00)
[2019-09-20] MEDS ORDERED: PNEUMOCOCCAL VACCINE 0.5 ML IMVAC ONE (18:00)
[2019-09-20] MEDS ORDERED: IPRATROPIUM BROM 0.5MG/2.5ML NEB PRN (18:00)
[2019-09-20] MEDS ORDERED: MAGNESIUM SULFATE 1 gm IVPB 1 GM/100 ML BAG IV ONE (19:00)
[2019-09-20] MEDS ORDERED: levETIRAcetam 500 MG TAB FT SCH (21:00)
[2019-09-20] MEDS ORDERED: FAMOTIDINE 20 MG TAB FT SCH (21:00)
[2019-09-20 22:10] VITALS: BP 127/82; TEMP 97
[2019-09-21] MEDS ORDERED: JUVEN PACKET FT SCH (09:00)
== END 2019-09-20 20:08 | DRG 208 ==
LOC: ER 11:09 → ERHOLD 13:23 → 3RD-ICU 09-19 12:09
PROVIDERS: ADMIT Family Medicine; ATTEND Family Medicine
PROC: 5A1945Z Respiratory Ventilation, 24-96 Consecutive Hours (ICD-10-PCS; principal; 2019-09-19)
PROC: 30233N1 Transfusion of Nonautologous Red Blood Cells into Peripheral Vein, Percutaneous Approach (ICD-10-PCS; 2019-09-19)
DX: J15.212 Pneumonia due to Methicillin resistant Staphylococcus aureus (principal); J96.21 Acute and chronic respiratory failure with hypoxia; I26.99 Other pulmonary embolism without acute cor pulmonale; Z79.01 Long term (current) use of anticoagulants; Z86.73 Personal history of transient ischemic attack (TIA), and cerebral infarction without residual deficits; Z93.0 Tracheostomy status; Z93.1 Gastrostomy status; E78.2 Mixed hyperlipidemia; K21.9 Gastro-esophageal reflux disease without esophagitis; I10 Essential (primary) hypertension; D63.8 Anemia in other chronic diseases classified elsewhere; Z79.891 Long term (current) use of opiate analgesic; Z79.899 Other long term (current) drug therapy; Z20.828 Contact with and (suspected) exposure to other viral communicable diseases; Z87.891 Personal history of nicotine dependence
CPT/HCPCS: 36415; 71045; 80048; 80053; 80076; 81003; 81015; 82150; 82550; 82553; 82805; 82947; 83605; 83690; 83735; 84145; 84484; 85014; 85018; 85025; 85610; 85730; 86850; 86900; 86901; 87040; 87070; 87077; 87086; 87088; 87186; 87205; 90471; 90670; 93005; 94002; 94003; 94640; 94760; 96365; 96366; 96375; 99291; J0692; J0713; J1940; J3411; J3475; J3590; J7030; P9016; Q2035; U0002